=== PATIENT | female | born 1995 | race Two or more races ===

== ENCOUNTER 2016-11-26 09:08 | Observation (INO) | payer MEDICARE, MEDICAID ==
[~2016-11-26] VITALS: Ht 162.6 cm; Wt 99.8 kg
[2016-11-26] MEDS ORDERED: LORazepam 2MG/ML-1ML VIAL ONE (10:26)
[2016-11-26] MEDS ORDERED: LORazepam 2MG/ML-1ML VIAL IV ONE (10:30)
[2016-11-26] MEDS ORDERED: SODIUM CHLORIDE 0.9% 1,000 ML IVB ONE (10:40)
[2016-11-26 12:11] LABS: Basophils # (auto) 0 uL; Basophils % (auto) 0.1 % (0.0-2.0); Eosinophils # (auto) 0 uL; Hematocrit 36.9 % (36.0-46.0); Hemoglobin 12.3 g/dL (12.2-16.2); Lymphocytes % (auto) 7.9 % (10.0-50.0); Mean Corpuscular Hemoglobin 31.4 pg (28.0-32.0); Mean Corpuscular Hgb Conc. 33.3 g/dL (32.0-36.0); Mean Corpuscular Volume 94.2 fL (80.0-100.0); Mean Platelet Volume 8.3 fL (7.4-10.4); Monocytes # (auto) 0.4 uL; Monocytes % (auto) 2.8 % (0.0-12.0); Neutrophils # (auto) 11.8 uL; Neutrophils % (auto) 89.2 % (37.0-80.0); Platelet Count (auto) 217 10^3/uL (140-450); Red Cell Distribution Width 12.8 % (11.6-16.0); White Blood Cell 13.2 10^3/uL (4.4-10.8)
[2016-11-26 12:40] LABS: Urine Bilirubin Negative (Negative); Urine Blood Negative /uL (Negative); Urine Color Yellow (Yellow); Urine Glucose Normal (Normal); Urine Ketone Negative (Negative); Urine Mucus FEW (None Seen); Urine Nitrite Negative (Negative); Urine RBC <1 /hpf (0 - 4); Urine Urobilinogen Normal (Negative)
[2016-11-26 12:43] LABS: Albumin 3.2 g/dL (3.4-5.0); BUN/Creatinine Ratio 9.6; Bilirubin, Total 0.2 mg/dL (0.2-1.0); Calcium 7.8 mg/dL (8.5-10.1); Potassium 3.4 mmol/L (3.5-5.1); Total Protein 7.3 g/dL (6.4-8.2)
[2016-11-26 13:40] VITALS: BP 110/52
== END 2016-11-26 16:25 | disposition home or self-care (01) | DRG 101 ==
LOC: ER 09:08 → EDBD 09:08 → OVERFLOW 10:42
PROVIDERS: ADMIT Emergency Medicine; ATTEND Emergency Medicine
DX: G40.909 Epilepsy, unspecified, not intractable, without status epilepticus (principal); F79 Unspecified intellectual disabilities; Z87.891 Personal history of nicotine dependence
CPT/HCPCS: 36415; 70450; 71010; 80053; 81001; 81025; 82962; 83735; 84443; 85025; 93005; 96361; 96374; 99285; G0378; G0434; J2060; J7030

== ENCOUNTER 2018-11-16 10:23 | Inpatient (IN) | payer MEDICARE, MEDICAID | END 2018-11-19 11:05 | disposition home or self-care (01) | LOC: ER 10:23 → OVERFLOW 14:07 → CENTRAL 17:24 | DX: A41.9 Sepsis, unspecified organism (principal); J18.9 Pneumonia, unspecified organism; G93.41 Metabolic encephalopathy; E87.2 Acidosis; G40.89 Other seizures; E66.9 Obesity, unspecified; F79 Unspecified intellectual disabilities; G40.401 Other generalized epilepsy and epileptic syndromes, not intractable, with status epilepticus ==

== ENCOUNTER 2019-07-22 17:05 | Emergency (ER) | payer MEDICARE, MEDICAID ==
[~2019-07-22] VITALS: Ht 177.8 cm; Wt 90.7 kg
[~2019-07-22 17:05] MED LIST: AZIT250T8 PO; FOLI1TAB6 PO; OXCA600T3 PO; PHEN32.44 PO; TOPI100T29 PO
[2019-07-22] MEDS ORDERED: LORazepam 2MG/ML-1ML VIAL ONE (18:01)
[2019-07-22] MEDS ORDERED: LORazepam 2MG/ML-1ML VIAL IV ONE (18:15)
[2019-07-22 21:55] LABS: Urine WBC None Seen /hpf (0 - 5)
[2019-07-22] MEDS ORDERED: PHENobarbital 32.4 MG TAB PO ONE (22:00)
[2019-07-22] MEDS ORDERED: OXcarbazepine 300 MG TAB PO ONE (22:00)
[2019-07-22] MEDS ORDERED: TOPIRAMATE 100 MG TAB PO ONE (22:00)
[2019-07-22 22:22] LABS: Urine Bacteria FEW /hpf (None Seen); Urine Blood 1+ /uL (Negative); Urine Specific Gravity 1.008 (1.001-1.035)
[2019-07-22 22:30] VITALS: BP 126/61
[2019-07-22 23:21] LABS: Basophils # (auto) 0 uL; Basophils % (auto) 0.6 % (0.0-2.0); Eosinophils # (auto) 0 uL; Eosinophils % (auto) 0.1 % (0.0-7.0); Hematocrit 43.1 % (36.0-46.0); Hemoglobin 14.4 g/dL (12.2-16.2); Lymphocytes # (auto) 1.1 uL; Lymphocytes % (auto) 16.9 % (10.0-50.0); Mean Corpuscular Hemoglobin 31.8 pg (28.0-32.0); Mean Corpuscular Hgb Conc. 33.4 g/dL (32.0-36.0); Mean Corpuscular Volume 95.3 fL (80.0-100.0); Monocytes # (auto) 0.8 uL; Monocytes % (auto) 12.6 % (0.0-12.0); Neutrophils # (auto) 4.4 uL; Neutrophils % (auto) 69.8 % (37.0-80.0); Nucleated Red Blood Cells % 0.1 %; Platelet Count (auto) 179 10^3/uL (140-450); Red Blood Cells 4.52 10^6/uL (4.0-5.20); Red Cell Distribution Width 12.5 % (11.8-14.3); White Blood Cell 6.4 10^3/uL (4.4-10.8)
[2019-07-22 23:37] LABS: Alanine Aminotransferase 20 U/L (13-56); Albumin 3.6 g/dL (3.4-5.0); Anion Gap 9 (5-15); Aspartate Aminotransferase 14 U/L (15-37); BUN/Creatinine Ratio 8.8; Blood Urea Nitrogen 6 mg/dL (7-18); Calcium 8.4 mg/dL (8.5-10.1); Carbon Dioxide 23 mmol/L (21-32); Chloride 109 mmol/L (98-107); GFR African American 135 mL/min; GFR Non-African American 111 mL/min; Glucose 92 mg/dL (74-106); Potassium 3.6 mmol/L (3.5-5.1); Sodium 141 mmol/L (136-145)
[2019-07-22 23:39] LABS: Alkaline Phosphatase 129 U/L (45-117); Bilirubin, Total 0.2 mg/dL (0.2-1.0); Creatine Kinase IFCC 46 U/L (26-192); Total Protein 8.4 g/dL (6.4-8.2)
== END 2019-07-22 23:55 | disposition home or self-care (01) ==
LOC: EDBD 17:05 → EDUNIT# 17:05 → ER 17:10
DX: G40.909 Epilepsy, unspecified, not intractable, without status epilepticus (principal); F79 Unspecified intellectual disabilities; Z79.899 Other long term (current) drug therapy
CPT/HCPCS: 36415; 80053; 81001; 82550; 85025; 96374; 99284; J2060

== ENCOUNTER → 2019-11-09 | Emergency (ER) | payer MEDICARE, MEDICAID ==
[~2019-11-09] VITALS: Ht 167.6 cm; Wt 74.8 kg
[~2019-11-09] MED LIST changes: +LORazepam 2MG/ML-1ML VIAL IV ONE; +LORazepam 2MG/ML-1ML VIAL ONE; +SODIUM CHLORIDE 0.9% 1,000 ML IV ONE; +TOPI100T68 PO
[2019-11-09 13:57] LABS: Albumin 3.6 g/dL (3.4-5.0); Anion Gap 9 (5-15); Blood Urea Nitrogen 8 mg/dL (7-18); Calcium 8.7 mg/dL (8.5-10.1); Carbon Dioxide 21 mmol/L (21-32); Chloride 110 mmol/L (98-107); GFR African American 112 mL/min; GFR Non-African American 92 mL/min; Glucose 101 mg/dL (74-106); Magnesium 2.5 mg/dL (1.6-2.6); Potassium 3.6 mmol/L (3.5-5.1); Sodium 140 mmol/L (136-145)
[2019-11-09 14:02] LABS: Alanine Aminotransferase 30 U/L (13-56); Alkaline Phosphatase 139 U/L (45-117); Aspartate Aminotransferase 20 U/L (15-37); Bilirubin, Total 0.2 mg/dL (0.2-1.0); Total Protein 8.5 g/dL (6.4-8.2)
[2019-11-09 14:14] LABS: Beta HCG, Quantitative < 1 mlU/mL (1-3)
[2019-11-09 14:20] LABS: Basophils # (auto) 0 10 ^3/uL (0-0.2); Basophils % (auto) 0.3 % (0.0-2.0); Eosinophils # (auto) 0 10 ^3/uL (0-0.8); Eosinophils % (auto) 0.1 % (0.0-7.0); Hematocrit 42.8 % (36.0-46.0); Hemoglobin 14.2 g/dL (12.2-16.2); Lymphocytes # (auto) 0.7 10 ^3/uL (0.4-5.4); Lymphocytes % (auto) 4.4 % (10.0-50.0); Mean Corpuscular Hgb Conc. 33.2 g/dL (32.0-36.0); Mean Corpuscular Volume 96.3 fL (80.0-100.0); Monocytes # (auto) 0.6 10 ^3/uL (0-1.3); Monocytes % (auto) 3.7 % (0.0-12.0); Neutrophils # (auto) 14.2 10 ^3/uL (1.6-8.6); Neutrophils % (auto) 91.5 % (37.0-80.0); Platelet Count (auto) 194 10^3/uL (140-450); Red Blood Cells 4.44 10^6/uL (4.0-5.20); Red Cell Distribution Width 12.6 % (11.8-14.3); White Blood Cell 15.5 10^3/uL (4.4-10.8)
[2019-11-09 16:00] VITALS: BP 108/53
[2019-11-09 16:28] LABS: Urine Bacteria MANY /hpf (None Seen); Urine Blood 2+ /uL (Negative); Urine Mucus FEW (None Seen); Urine Specific Gravity 1.015 (1.001-1.035); Urine WBC 11 /hpf (0 - 5); Urine WBC Clumps PRESENT /hpf (None Seen)
[2019-11-09 16:42] LABS: Amphetamine Screen, Urine NEGATIVE (NEGATIVE); Barbiturate Scree,Urine POSITIVE (NEGATIVE); Benzodiazephine Screen, Urine POSITIVE (NEGATIVE); Cannabinoid Screen, Urine NEGATIVE (NEGATIVE); Cocaine Screen, Urine NEGATIVE (NEGATIVE); Opiate Scree,Urine NEGATIVE (NEGATIVE); Phencyclidine Screen, Urine NEGATIVE (NEGATIVE)
== END | disposition home or self-care (01) ==
LOC: EDUNIT# 10:42 → EDBD 10:56 → ER 10:56
DX: G40.909 Epilepsy, unspecified, not intractable, without status epilepticus (principal); N39.0 Urinary tract infection, site not specified; F79 Unspecified intellectual disabilities; R78.0 Finding of alcohol in blood; Y90.9 Presence of alcohol in blood, level not specified
CPT/HCPCS: 36415; 70450; 71045; 80053; 80184; 80307; 81001; 83735; 84443; 84484; 84702; 85025; 96374; 99285; J2060; J7030

== ENCOUNTER 2019-11-13 00:44 | Inpatient (IN) | payer MEDICARE, MEDICAID ==
[~2019-11-13] VITALS: Ht 160 cm; Wt 85.4 kg
[~2019-11-13 00:44] MED LIST changes: -LORazepam 2MG/ML-1ML VIAL IV ONE; -LORazepam 2MG/ML-1ML VIAL ONE; -SODIUM CHLORIDE 0.9% 1,000 ML IV ONE; -TOPI100T68 PO
[2019-11-13] MEDS ORDERED: ACCU-CHEK COMFORT CURVE STRIP VI ONE (01:00)
[2019-11-13] MEDS ORDERED: LORazepam 2MG/ML-1ML VIAL IV ONE (01:45)
[2019-11-13 01:58] LABS: Basophils # (auto) 0 10 ^3/uL (0-0.2); Basophils % (auto) 0.4 % (0.0-2.0); Eosinophils # (auto) 0.1 10 ^3/uL (0-0.8); Eosinophils % (auto) 1.2 % (0.0-7.0); Hematocrit 42.3 % (36.0-46.0); Hemoglobin 13.9 g/dL (12.2-16.2); Lymphocytes % (auto) 18.6 % (10.0-50.0); Mean Corpuscular Hemoglobin 32.3 pg (28.0-32.0); Mean Corpuscular Hgb Conc. 32.9 g/dL (32.0-36.0); Mean Corpuscular Volume 98.2 fL (80.0-100.0); Monocytes # (auto) 0.7 10 ^3/uL (0-1.3); Monocytes % (auto) 6.7 % (0.0-12.0); Neutrophils # (auto) 7.8 10 ^3/uL (1.6-8.6); Neutrophils % (auto) 73.1 % (37.0-80.0); Platelet Count (auto) 272 10^3/uL (140-450); Red Blood Cells 4.31 10^6/uL (4.0-5.20); White Blood Cell 10.6 10^3/uL (4.4-10.8)
[2019-11-13 02:22] LABS: Alanine Aminotransferase 49 U/L (13-56); Albumin 3.3 g/dL (3.4-5.0); Anion Gap 8 (5-15); Aspartate Aminotransferase 43 U/L (15-37); BUN/Creatinine Ratio 7.4; Blood Urea Nitrogen 5 mg/dL (7-18); Calcium 8.9 mg/dL (8.5-10.1); Carbon Dioxide 21 mmol/L (21-32); Chloride 109 mmol/L (98-107); GFR African American 135 mL/min; GFR Non-African American 111 mL/min; Glucose 119 mg/dL (74-106); Potassium 3.6 mmol/L (3.5-5.1); Sodium 138 mmol/L (136-145)
[2019-11-13 02:25] LABS: Alkaline Phosphatase 108 U/L (45-117); Bilirubin, Total 0.4 mg/dL (0.2-1.0); Total Protein 8.1 g/dL (6.4-8.2)
[2019-11-13 04:21] LABS: INR 1.07 (0.9-1.15); Partial Thromboplastin Time 28.4 sec (23.64-32.05)
[2019-11-13 04:24] LABS: Salicylate < 1.7 mg/dL (2.8-20.0)
[2019-11-13 04:28] LABS: Acetaminophen < 2.0 ug/mL (10-30)
[2019-11-13 04:34] LABS: Blood Alcohol < 3.0 mg/dL (0-5); Magnesium 1.9 mg/dL (1.6-2.6)
[2019-11-13 04:43] LABS: Beta HCG, Quantitative < 1 mlU/mL (1-3)
[2019-11-13 05:58] LABS: Urine Bacteria FEW /hpf (None Seen); Urine Blood 2+ /uL (Negative); Urine Mucus FEW (None Seen); Urine Specific Gravity 1.015 (1.001-1.035); Urine WBC 2 /hpf (0 - 5)
[2019-11-13 06:07] LABS: Amphetamine Screen, Urine NEGATIVE (NEGATIVE); Barbiturate Scree,Urine POSITIVE (NEGATIVE); Benzodiazephine Screen, Urine NEGATIVE (NEGATIVE); Cannabinoid Screen, Urine NEGATIVE (NEGATIVE); Cocaine Screen, Urine NEGATIVE (NEGATIVE); Opiate Scree,Urine NEGATIVE (NEGATIVE); Phencyclidine Screen, Urine NEGATIVE (NEGATIVE)
[2019-11-13] MEDS ORDERED: HYDROcodone-ACET 5/325MG TAB PO PRN (07:00)
[2019-11-13] MEDS ORDERED: DOCUSATE SOD 100 MG CAP PO PRN (07:00)
[2019-11-13] MEDS ORDERED: ACETAMINOPHEN 325 MG TAB PO PRN (07:00)
[2019-11-13] MEDS ORDERED: SODIUM CHLORIDE 0.9% 1,000 ML IV ONE (07:00)
[2019-11-13] MEDS ORDERED: DEXTROSE (50%) 50ML SYRG IV PRN (07:00)
[2019-11-13] MEDS ORDERED: ONDANSETRON HCL 4 MG/2 ML VIAL IV PRN (07:00)
[2019-11-13] MEDS: InsuLIN REG 1unit/0.01ml Soln (100units/ml) SC SCH ×5 (08:00→23:28)
[2019-11-13] MEDS: ACCU-CHEK COMFORT CURVE STRIP VI SCH ×5 (08:07→23:29)
[2019-11-13] MEDS: cefTRIAXone 1GM/50ML D5W 50 ML IV SCH (09:41)
[2019-11-13] MEDS: PHENobarbital 32.4 MG TAB PO SCH ×2 (09:49→19:45)
[2019-11-13] MEDS: OXcarbazepine 300 MG TAB PO SCH ×2 (09:50→19:47)
[2019-11-13] MEDS: FOLIC ACID 1 MG TAB PO SCH (09:53)
[2019-11-13] MEDS ORDERED: TOPIRAMATE 100 MG TAB PO SCH (10:00)
--- NOTE | 2019-11-13 10:20 | NUR ---
PATIENT ADMITTED TO FLOOR NO DISTRESS NOTED. Tiburcio NURSE REPORTS PT IS HAVING SMALL SEIZURES LASTING 30 SECONDS, SHE REPORTS PT LAST SEIZURE WAS LAST NIGHT. BED RAILS PADDED, NASAL CANULA HOOKED UP TO 02 AND READY IF NEEDED. SEIZURE PRECAUTIONS IN PLACE, BED ALARM ON. PT WAS ABLE TO GET UP FROM E.[facility]. [facility] AND WALK A COUPLE STEPS TO SIT IN BED WITH MINIMUM ASSIST. ASKED PT QUESTIONS, PT DOESN'T SPEAK TO RESPOND BUT WILL NOD HEAD YES OR NO IN RESPONSE. PT IS ABLE TO FOLLOW COMMANDS. PT REPORTS SHE HAS NO PAIN AT THIS TIME. VITALS:BP 122/68, HR 109, 02 94 ON RA, T 98.4, RR 17. PT ORIENTED TO CALL LIGHT, SIDE RAILS UP X2, BED IN LOWEST LOCKED POSITION, WILL CONTINUE TO MONITOR.
[2019-11-13] MEDS ORDERED: TOPI100T68 PO (10:54)
[2019-11-13 13:00] VITALS: BP 122/68
--- NOTE | 2019-11-13 14:16 | NUR ---
DREAD REPORTS SHE ATTEMPTED TO FEED PATIENT. SHE REPORTS PT WILL PUT FOOD IN HER MOUTH BUT IS NOT CHEWING OR SWALLOWING. [facility]AR HOSPITALIST, WILL REQUEST DIFFERENT DIET AND SWALLOW EVALUATION. Addendum: 11/13/19 at 1608 by ARIAS WRIGHT RN SPONGE BUFFER REPORTS PT ONLY HAD A COUPLE BITS OF LUNCH.
--- NOTE | 2019-11-13 15:17 | NUR ---
PAGED HOSPITALIST AGAIN TO REPORTS PT NOT CHEWING OR SWALLOWING AND TO REQUEST DIFFERENT DIET, AWAITING CALL BACK. Addendum: 11/13/19 at 1519 by ARIAS WRIGHT RN WILL REQUEST DIET CHANGE TO NPO
--- NOTE | 2019-11-13 15:32 | NUR ---
SPOKE WITH PT SISTER PREMA. PREMA REPORTS PT LAST BM IS 11/09. PREMA REPORTS PT DOESN'T SPEAK MUCH AT HOME, SHE ALSO REPORTS PT NORMALLY HAS NO TROUBLE VOIDING AND HAS NOT HAD A BM BECAUSE PT HASN'T BEEN EATING WELL THE LAST FEW DAYS. PREMA REPORTS PT DID EAT BREAKFAST THIS MORNING AND VOIDED 3 TIME THIS MORNING, ONCE IN E.R. BEFORE PT WAS ADMITTED TO FLOOR.
--- NOTE | 2019-11-13 15:58 | NUR ---
PT VOIDED LARGE AMOUNT OF YELLOW URINE ON CHUCKS, PT CLEANED, CHUCKS CHANGED, WILL CONTINUE TO MONITOR.
[2019-11-13 17:00] VITALS: BP 117/66
--- NOTE | 2019-11-13 17:11 | NUR ---
SEMICONDUCTOR LAB TECHNICIAN REPORTS PT O2 ON RA IS 88%. REASSESSED 02 ON RA, O2 FLUCTUATING BETWEEN 89% AND 92 %. PT PLACED ON 2L NC. WILL CONTINUE TO MONITOR.
--- NOTE | 2019-11-13 19:30 | NUR ---
Opening Shift Note Assumed care of patient, awake and alert. No S/S of distress/SOB or pain. Insructed on POC and to callfor assist PRN, will continue to monitor for changes Q1hr and PRN. Fall and safety and seizure precautions in place. Call light within reach.
[2019-11-13] MEDS: TOPIRAMATE 100 MG TAB PO SCH (19:46)
--- NOTE | 2019-11-13 20:50 | NUR ---
IV insertion IV access obtained, via clean sterile technique by inserting 22 gauge catheter at RFA after 2 attempts. IV secured properly. No trauma to site. Patient tolerated well. IV removal IV DC'd with clean sterile technique, catheter fully intact. Pressure dressing applied to site. Patient tolerated well. NOTE: LFA 22g removed due to infiltration
[2019-11-13 21:37] VITALS: BP 120/59
--- NOTE | 2019-11-13 22:00 | NUR ---
HOSPITALIST Paged on-call hospitalist regarding PRN seizure medication for break-through seizures. Awaiting call back.
[2019-11-13] MEDS ORDERED: LORazepam 2MG/ML-1ML VIAL IV PRN (22:30)
--- NOTE | 2019-11-13 22:30 | NUR ---
CHASITY Craft at nurse's station, informed him no PRN Ativan for seizures on board. New orders received, read back and verified. Will input
[2019-11-14] MEDS: InsuLIN REG 1unit/0.01ml Soln (100units/ml) SC SCH ×5 (04:00→19:56)
[2019-11-14] MEDS: ACCU-CHEK COMFORT CURVE STRIP VI SCH ×5 (04:01→19:56)
[2019-11-14 04:42] VITALS: BP 116/81
--- NOTE | 2019-11-14 07:20 | NUR ---
Opening shift note Assumed care of patient. Patient A&Ox3. Does not verbalize but nods for yes/no. Respirations even and non-labored with no s/s of distress. Patient denies any pain and no facial grimacing is noted. IV flushed, patent and intact. POC written on whiteboard. Patient requested to use the restroom, assisted to bedside commode. Patient urinated 150 mL of clear, dark yellow urine, denied any pain upon urination. Bed lowered/locked with 2 side rails up, seizure precautions in place, bed alarm on, call light within reach, will continue to monitor.
[2019-11-14 08:00] VITALS: BP 129/74
[2019-11-14 09:03] VITALS: BP 115/70
[2019-11-14] MEDS: PHENobarbital 32.4 MG TAB PO SCH ×2 (09:56→22:16)
[2019-11-14] MEDS: FOLIC ACID 1 MG TAB PO SCH (09:56)
[2019-11-14] MEDS: OXcarbazepine 300 MG TAB PO SCH ×2 (09:56→22:16)
[2019-11-14] MEDS: TOPIRAMATE 100 MG TAB PO SCH ×2 (09:56→22:16)
[2019-11-14] MEDS: cefTRIAXone 1GM/50ML D5W 50 ML IV SCH (09:57)
[2019-11-14 12:20] VITALS: BP 123/73
--- NOTE | 2019-11-14 13:30 | NUR ---
Patient ambulating to bedside commode. Returned to bed, bed alarm activated.
--- NOTE | 2019-11-14 14:04 | NUR ---
EEG procedure bedside.
--- NOTE | 2019-11-14 14:34 | NUR ---
SWALLOW EVALUATED. PATIENT HAS NATURAL TEETH, UPPER AND LOWER. PATIENT IS INTELLECTUALLY DISABLED AND NONVERBAL. PATIENT ABLE TO TOLERATE MECHANICAL SOFT DIET TEXTURE WITH THIN LIQUIDS WITH NO OVERT SIGNS OR SYMPTOMS OF ASPIRATION. PATIENT WILL REQUIRE MAX CUEING TO EAT. NURSING NOTIFIED.
[2019-11-14 16:45] VITALS: BP 121/79
--- NOTE | 2019-11-14 17:20 | NUR ---
SITTER PATIENT TRANSFERRED TO [facility] WITH A SITTER BEDSIDE. PATIENT REQUIRES REGULAR REORIENTATION FOR SAFETY.
--- NOTE | 2019-11-14 18:59 | NUR ---
ENDORSED CARE TO NIGHT RN.
--- NOTE | 2019-11-14 19:30 | NUR ---
Opening Shift Note Assumed care of patient, awake and alert. No S/S of distress/SOB or pain. Patient is aphasic and mentally delayed, but answers appropriately with a nod of the head for yes and no. Sitter at bedside. Will continue to monitor for changes Q1hr and PRN.
[2019-11-14 22:00] VITALS: BP 136/78
[2019-11-15] MEDS: InsuLIN REG 1unit/0.01ml Soln (100units/ml) SC SCH ×5 (00:10→16:00)
[2019-11-15] MEDS: ACCU-CHEK COMFORT CURVE STRIP VI SCH ×5 (00:10→16:00)
[2019-11-15 02:00] VITALS: BP 130/70
[2019-11-15 05:00] VITALS: BP 118/82
--- NOTE | 2019-11-15 07:30 | NUR ---
Opening Shift Note Assumed care of patient from noc shift rn, awake and alert. No S/S of distress/SOB, denies pain at this time. Instructed on POC and to call for assist PRN, will continue to monitor for changes Q1hr and PRN. Sitter at bedside. No signs of seizures noted at this time.
[2019-11-15 08:00] VITALS: BP 124/68
[2019-11-15 09:00] VITALS: BP 124/68
[2019-11-15] MEDS: cefTRIAXone 1GM/50ML D5W 50 ML IV SCH (10:40)
[2019-11-15] MEDS: PHENobarbital 32.4 MG TAB PO SCH (10:43)
[2019-11-15] MEDS: FOLIC ACID 1 MG TAB PO SCH (10:43)
[2019-11-15] MEDS: OXcarbazepine 300 MG TAB PO SCH (10:43)
[2019-11-15] MEDS: TOPIRAMATE 100 MG TAB PO SCH (10:43)
[2019-11-15 13:00] VITALS: BP 143/74
--- NOTE | 2019-11-15 13:20 | NUR ---
ELECTROENCEPHALOGRAM COMPLETED AT BEDSIDE. JOANNE CATALAN.
[2019-11-15 17:00] VITALS: BP 130/74
--- NOTE | 2019-11-15 18:20 | NUR ---
patient discharged, discharge instruction and copies given to sister (Jeannie) over the phone and in person. Patient does not speak but able to respond to "yes or no" questions. IV discontinued. no s/s distress noted at this time. Picked up by sister.
== END 2019-11-15 18:00 | disposition home or self-care (01) | DRG 101 ==
LOC: ER 00:46 → EAST 04:47 → CENTRAL 10:10
PROVIDERS: ADMIT Hospitalist; ATTEND Internal Medicine Nephrology
DX: G40.401 Other generalized epilepsy and epileptic syndromes, not intractable, with status epilepticus (principal); N39.0 Urinary tract infection, site not specified; R73.9 Hyperglycemia, unspecified; F79 Unspecified intellectual disabilities; Z79.899 Other long term (current) drug therapy
CPT/HCPCS: 36415; 70450; 71045; 80053; 80307; 80320; 80329; 81001; 82962; 83036; 83735; 84443; 84484; 84702; 85025; 85610; 85730; 87086; 92610; 95819; 96361; 96365; 96375; G0378; J0696

== ENCOUNTER → 2020-03-03 | Emergency (ER) | payer MEDICARE, MEDICAID ==
[~2020-03-03] VITALS: Ht 162.6 cm; Wt 124.7 kg
[~2020-03-03] MED LIST changes: +HALOPERIDOL LACTATE 5 MG/ML INJ VIAL IM ONE; +HALOPERIDOL LACTATE 5 MG/ML INJ VIAL ONE; +LORazepam 2MG/ML-1ML VIAL IM ONE; +LORazepam 2MG/ML-1ML VIAL ONE; -TOPI100T29 PO; +TOPI100T68 PO; +diphenhdrAMINE HCL 50 MG/1 ML VL IM ONE; +diphenhdrAMINE HCL 50 MG/1 ML VL ONE
[2020-03-04 03:01] LABS: Basophils # (auto) 0.1 10 ^3/uL (0-0.2); Basophils % (auto) 0.5 % (0.0-2.0); Eosinophils # (auto) 0.1 10 ^3/uL (0-0.8); Eosinophils % (auto) 0.9 % (0.0-7.0); Hemoglobin 13.8 g/dL (12.2-16.2); Lymphocytes # (auto) 2.8 10 ^3/uL (0.4-5.4); Lymphocytes % (auto) 24.2 % (10.0-50.0); Mean Corpuscular Hemoglobin 31.7 pg (28.0-32.0); Mean Corpuscular Hgb Conc. 32.8 g/dL (32.0-36.0); Mean Corpuscular Volume 96.8 fL (80.0-100.0); Monocytes # (auto) 0.8 10 ^3/uL (0-1.3); Monocytes % (auto) 7.3 % (0.0-12.0); Neutrophils # (auto) 7.7 10 ^3/uL (1.6-8.6); Neutrophils % (auto) 67.1 % (37.0-80.0); Platelet Count (auto) 238 10^3/uL (140-450); Red Blood Cells 4.34 10^6/uL (4.0-5.20); White Blood Cell 11.4 10^3/uL (4.4-10.8)
[2020-03-04 03:08] LABS: Urine Bacteria MANY /hpf (None Seen); Urine Blood Negative /uL (Negative); Urine Mucus FEW (None Seen); Urine Specific Gravity 1.011 (1.001-1.035); Urine WBC 2 /hpf (0 - 5)
[2020-03-04 03:09] LABS: Alcohol, Urine < 3.0 mg/dL (0-10); Amphetamine Screen, Urine NEGATIVE (NEGATIVE); Barbiturate Scree,Urine POSITIVE (NEGATIVE); Benzodiazephine Screen, Urine NEGATIVE (NEGATIVE); Cannabinoid Screen, Urine NEGATIVE (NEGATIVE); Cocaine Screen, Urine NEGATIVE (NEGATIVE); Opiate Scree,Urine NEGATIVE (NEGATIVE); Phencyclidine Screen, Urine NEGATIVE (NEGATIVE)
[2020-03-04 03:16] LABS: Albumin 3.4 g/dL (3.4-5.0); Anion Gap 4 (5-15); Blood Alcohol < 3.0 mg/dL (0-5); Blood Urea Nitrogen 7 mg/dL (7-18); Calcium 8.5 mg/dL (8.5-10.1); Carbon Dioxide 24 mmol/L (21-32); Chloride 112 mmol/L (98-107); Glucose 96 mg/dL (74-106); Potassium 3.6 mmol/L (3.5-5.1); Sodium 140 mmol/L (136-145)
[2020-03-04 03:19] LABS: Alanine Aminotransferase 22 U/L (13-56); Alkaline Phosphatase 128 U/L (45-117); Aspartate Aminotransferase 25 U/L (15-37); BUN/Creatinine Ratio 9.6; Bilirubin, Total 0.3 mg/dL (0.2-1.0); GFR African American 124 mL/min; GFR Non-African American 102 mL/min; Total Protein 7.9 g/dL (6.4-8.2)
[2020-03-04 04:56] VITALS: BP 107/39
== END | disposition home or self-care (01) ==
LOC: EDUNIT# 20:35 → EDBD 20:49 → ER 20:50
DX: G40.909 Epilepsy, unspecified, not intractable, without status epilepticus (principal); H61.23 Impacted cerumen, bilateral; R41.82 Altered mental status, unspecified
CPT/HCPCS: 36415; 80053; 80307; 80320; 81001; 85025; 96372; 99285; J1200; J1630; J2060; 70450

== ENCOUNTER 2021-01-07 16:28 | Inpatient (IN) | payer MEDICARE, MEDICAID ==
[~2021-01-07] VITALS: Ht 162.6 cm; Wt 98.8 kg
[~2021-01-07 16:28] MED LIST changes: -HALOPERIDOL LACTATE 5 MG/ML INJ VIAL IM ONE; -HALOPERIDOL LACTATE 5 MG/ML INJ VIAL ONE; -LORazepam 2MG/ML-1ML VIAL IM ONE; -LORazepam 2MG/ML-1ML VIAL ONE; -diphenhdrAMINE HCL 50 MG/1 ML VL IM ONE; -diphenhdrAMINE HCL 50 MG/1 ML VL ONE
[2021-01-07] MEDS ORDERED: LORazepam 2MG/ML-1ML VIAL ONE (16:41)
[2021-01-07 17:39] LABS: Basophils # (auto) 0.1 10 ^3/uL (0-0.2); Basophils % (auto) 0.4 % (0.0-2.0); Eosinophils # (auto) 0.1 10 ^3/uL (0-0.8); Eosinophils % (auto) 0.9 % (0.0-7.0); Hematocrit 42.2 % (36.0-46.0); Hemoglobin 13.9 g/dL (12.2-16.2); Lymphocytes # (auto) 1.8 10 ^3/uL (0.4-5.4); Lymphocytes % (auto) 13.9 % (10.0-50.0); Mean Corpuscular Volume 96.8 fL (80.0-100.0); Monocytes # (auto) 0.7 10 ^3/uL (0-1.3); Monocytes % (auto) 5.9 % (0.0-12.0); Neutrophils # (auto) 9.9 10 ^3/uL (1.6-8.6); Neutrophils % (auto) 78.9 % (37.0-80.0); Platelet Count (auto) 255 10^3/uL (140-450); Red Blood Cells 4.36 10^6/uL (4.0-5.20); White Blood Cell 12.6 10^3/uL (4.4-10.8)
[2021-01-07] MEDS ORDERED: LORazepam 2MG/ML-1ML VIAL IV ONE ×2 (17:45→18:45)
[2021-01-07 18:07] LABS: Potassium 3.7 mmol/L (3.5-5.1)
[2021-01-07 18:15] LABS: Albumin 3.7 g/dL (3.4-5.0); BUN/Creatinine Ratio 8.2; Calcium 8.5 mg/dL (8.5-10.1)
[2021-01-07 18:16] LABS: Bilirubin, Total 0.3 mg/dL (0.2-1.0); Total Protein 8.2 g/dL (6.4-8.2)
[2021-01-07 18:41] LABS: Urine Bacteria MANY /hpf (None Seen); Urine Blood Negative /uL (Negative); Urine Mucus FEW (None Seen); Urine Specific Gravity 1.019 (1.001-1.035); Urine WBC 11 /hpf (0 - 5)
[2021-01-07] MEDS ORDERED: ALBUTEROL SULF 2.5 MG/0.5ML(0.5%) NEB SOLN NEB PRN (18:45)
[2021-01-07] MEDS ORDERED: ACETAMINOPHEN 500 MG TAB PO PRN (18:45)
[2021-01-07] MEDS ORDERED: ONDANSETRON HCL 4 MG/2 ML VIAL IV ONE (18:45)
[2021-01-07] MEDS ORDERED: IPRATROPIUM BROM 0.5 MG/2.5ML INH SOL NEB PRN (18:45)
[2021-01-07] MEDS ORDERED: ONDANSETRON HCL 4 MG/2 ML VIAL IV PRN (18:45)
[2021-01-07] MEDS ORDERED: LORazepam 2MG/ML-1ML VIAL IV PRN (18:50)
[2021-01-07 19:53] VITALS: BP 117/70
[2021-01-07] MEDS: TOPIRAMATE 100 MG TAB PO SCH (22:54)
[2021-01-07] MEDS: PHENobarbital 32.4 MG TAB PO SCH (22:54)
[2021-01-07] MEDS: OXcarbazepine 300 MG TAB PO SCH (22:55)
[2021-01-08 08:30] VITALS: BP 106/64
[2021-01-08] MEDS: FAMOTIDINE 20 MG TAB PO SCH (10:06)
[2021-01-08] MEDS: TOPIRAMATE 100 MG TAB PO SCH ×2 (10:06→21:47)
[2021-01-08] MEDS: PHENobarbital 32.4 MG TAB PO SCH ×2 (10:06→21:47)
[2021-01-08] MEDS: FOLIC ACID 1 MG TAB PO SCH (10:06)
[2021-01-08] MEDS: OXcarbazepine 300 MG TAB PO SCH ×2 (10:07→21:47)
[2021-01-08 20:00] VITALS: BP 126/60
[2021-01-08 21:20] VITALS: BP 126/60
[2021-01-09 05:00] VITALS: BP 99/55
[2021-01-09 08:51] LABS: Basophils # (auto) 0 10 ^3/uL (0-0.2); Basophils % (auto) 0.4 % (0.0-2.0); Eosinophils # (auto) 0.1 10 ^3/uL (0-0.8); Eosinophils % (auto) 1.7 % (0.0-7.0); Hematocrit 41.6 % (36.0-46.0); Hemoglobin 14.1 g/dL (12.2-16.2); Lymphocytes # (auto) 1.7 10 ^3/uL (0.4-5.4); Lymphocytes % (auto) 19.9 % (10.0-50.0); Mean Corpuscular Hemoglobin 32.9 pg (28.0-32.0); Mean Corpuscular Hgb Conc. 33.9 g/dL (32.0-36.0); Mean Corpuscular Volume 96.9 fL (80.0-100.0); Monocytes # (auto) 0.6 10 ^3/uL (0-1.3); Monocytes % (auto) 6.7 % (0.0-12.0); Neutrophils # (auto) 6.2 10 ^3/uL (1.6-8.6); Neutrophils % (auto) 71.3 % (37.0-80.0); Nucleated Red Blood Cells % 0.1 %; Platelet Count (auto) 251 10^3/uL (140-450); Red Blood Cells 4.29 10^6/uL (4.0-5.20); Red Cell Distribution Width 12.7 % (11.8-14.3); White Blood Cell 8.7 10^3/uL (4.4-10.8)
[2021-01-09 09:00] VITALS: BP 118/75
[2021-01-09] MEDS: TOPIRAMATE 100 MG TAB PO SCH (09:00)
[2021-01-09] MEDS: FAMOTIDINE 20 MG TAB PO SCH (09:00)
[2021-01-09] MEDS: OXcarbazepine 300 MG TAB PO SCH (09:01)
[2021-01-09] MEDS: FOLIC ACID 1 MG TAB PO SCH (09:01)
[2021-01-09] MEDS: PHENobarbital 32.4 MG TAB PO SCH (09:01)
[2021-01-09 09:09] LABS: BUN/Creatinine Ratio 11.3; Calcium 8.8 mg/dL (8.5-10.1); Magnesium 2.2 mg/dL (1.6-2.6); Potassium 3.3 mmol/L (3.5-5.1)
[2021-01-09 13:00] VITALS: BP 121/79
[2021-01-09] MEDS ORDERED: POTASSIUM EFFERVESENT TAB 25 MEQ PO ONE (14:30)
== END 2021-01-09 16:50 | disposition home or self-care (01) | DRG 101 ==
LOC: EDBD 16:28 → ER 16:28 → CENTRAL 18:39 → OVERFLOW 23:58 → WEST WING 01-08 07:40
PROVIDERS: ADMIT Nurse Practitioner Acute Care; ATTEND Internal Medicine
DX: G40.401 Other generalized epilepsy and epileptic syndromes, not intractable, with status epilepticus (principal); R65.10 Systemic inflammatory response syndrome (SIRS) of non-infectious origin without acute organ dysfunction; E66.9 Obesity, unspecified; Z68.37 Body mass index [BMI] 37.0-37.9, adult; Z20.822 Contact with and (suspected) exposure to COVID-19; Z78.1 Physical restraint status; Z79.899 Other long term (current) drug therapy; E87.6 Hypokalemia
CPT/HCPCS: 36415; 80048; 80053; 80184; 81001; 83735; 85025; 87086; 87426; 96365; 96375; 96376; G0378; J2405; J7060

== ENCOUNTER → 2021-02-18 | Outpatient (CLI) | payer MEDICARE, MEDICAID ==
[~2021-02-18] MED LIST changes: -AZIT250T8 PO
[2021-02-18 11:44] LABS: Basophils # (auto) 0 10 ^3/uL (0-0.2); Basophils % (auto) 0.5 % (0.0-2.0); Eosinophils # (auto) 0.2 10 ^3/uL (0-0.8); Hematocrit 39.2 % (36.0-46.0); Hemoglobin 13.5 g/dL (12.2-16.2); Lymphocytes # (auto) 1.7 10 ^3/uL (0.4-5.4); Mean Corpuscular Hemoglobin 32.6 pg (28.0-32.0); Mean Corpuscular Hgb Conc. 34.3 g/dL (32.0-36.0); Mean Corpuscular Volume 95.1 fL (80.0-100.0); Monocytes # (auto) 0.5 10 ^3/uL (0-1.3); Monocytes % (auto) 7.1 % (0.0-12.0); Neutrophils % (auto) 62.4 % (37.0-80.0); Nucleated Red Blood Cells % 0.1 %; Red Blood Cells 4.13 10^6/uL (4.0-5.20); White Blood Cell 6.4 10^3/uL (4.4-10.8)
[2021-02-18 12:57] LABS: Albumin 3.6 g/dL (3.4-5.0); Calcium 8.4 mg/dL (8.5-10.1); Potassium 3.3 mmol/L (3.5-5.1)
[2021-02-18 13:04] LABS: BUN/Creatinine Ratio 13.1; Bilirubin, Total 0.3 mg/dL (0.2-1.0); Total Protein 8.2 g/dL (6.4-8.2)
== END | disposition home or self-care (01) ==
LOC: LAB 11:13
PROVIDERS: ATTEND Student in an Organized Health Care Education/Training Program
DX: G40.401 Other generalized epilepsy and epileptic syndromes, not intractable, with status epilepticus (principal); N39.0 Urinary tract infection, site not specified; R73.9 Hyperglycemia, unspecified; Z79.899 Other long term (current) drug therapy
CPT/HCPCS: 36415; 80053; 80061; 83036; 84439; 84443; 85025; 87086

== ENCOUNTER 2021-02-25 01:59 | Inpatient (IN) | payer MEDICARE, MEDICAID ==
[~2021-02-25] VITALS: Ht 177.8 cm; Wt 89.0 kg
[2021-02-25] MEDS ORDERED: LORazepam 2MG/ML-1ML VIAL ONE ×2 (03:12→06:11)
[2021-02-25] MEDS ORDERED: LORazepam 2MG/ML-1ML VIAL IV ONE ×2 (03:30→06:15)
[2021-02-25 04:03] LABS: Basophils # (auto) 0 10 ^3/uL (0-0.2); Basophils % (auto) 0.2 % (0.0-2.0); Eosinophils # (auto) 0.2 10 ^3/uL (0-0.8); Eosinophils % (auto) 2.1 % (0.0-7.0); Hematocrit 40.6 % (36.0-46.0); Hemoglobin 13.4 g/dL (12.2-16.2); Lymphocytes # (auto) 2.3 10 ^3/uL (0.4-5.4); Lymphocytes % (auto) 23.9 % (10.0-50.0); Mean Corpuscular Hemoglobin 31.7 pg (28.0-32.0); Mean Corpuscular Hgb Conc. 33.1 g/dL (32.0-36.0); Mean Corpuscular Volume 95.9 fL (80.0-100.0); Monocytes # (auto) 0.6 10 ^3/uL (0-1.3); Neutrophils # (auto) 6.4 10 ^3/uL (1.6-8.6); Neutrophils % (auto) 67.8 % (37.0-80.0); Red Blood Cells 4.23 10^6/uL (4.0-5.20); Red Cell Distribution Width 12.8 % (11.8-14.3); White Blood Cell 9.5 10^3/uL (4.4-10.8)
[2021-02-25 04:21] LABS: Albumin 3.6 g/dL (3.4-5.0); Calcium 8.5 mg/dL (8.5-10.1); Potassium 3.3 mmol/L (3.5-5.1)
[2021-02-25 04:28] LABS: Lactic Acid w/Reflex 8.1 mmol/L (0.4-2.0)
[2021-02-25 04:29] LABS: BUN/Creatinine Ratio 13.6; Bilirubin, Total 0.2 mg/dL (0.2-1.0); Total Protein 7.8 g/dL (6.4-8.2)
[2021-02-25] MEDS ORDERED: SODIUM CHLORIDE 0.9% 1,000 ML IV ONE (05:00)
[2021-02-25] MEDS ORDERED: ONDANSETRON HCL 4 MG/2 ML VIAL IV PRN (06:15)
[2021-02-25] MEDS ORDERED: ACETAMINOPHEN 325 MG TAB PO PRN (06:15)
[2021-02-25] MEDS ORDERED: LORazepam 2MG/ML-1ML VIAL IV PRN (06:15)
[2021-02-25] MEDS ORDERED: MORPHINE SULFATE INJECTION 2 MG/ML SYRG IV PRN (06:15)
[2021-02-25] MEDS ORDERED: TEMAZEPAM 15 MG CAP PO PRN (06:15)
[2021-02-25] MEDS ORDERED: NITROGLYCERIN 0.4 MG SL TAB SL PRN (06:15)
[2021-02-25] MEDS ORDERED: POTASSIUM CHL 20 Meq TABLET PO ONE (06:15)
[2021-02-25] MEDS ORDERED: cefTRIAXone 1GM/50ML D5W 50 ML IV SCH (09:00)
[2021-02-25] MEDS ORDERED: PHENobarbital 32.4 MG TAB PO SCH (10:00)
[2021-02-25] MEDS ORDERED: PHENobarbital SODIUM 65 MG/ML VL IV ONE (10:00)
[2021-02-25] MEDS: OXcarbazepine 300 MG TAB PO SCH ×2 (10:55→21:34)
[2021-02-25] MEDS: TOPIRAMATE 100 MG TAB PO SCH ×2 (10:55→21:34)
[2021-02-25] MEDS: PANTOPRAZOLE 40 MG TAB PO SCH (10:55)
[2021-02-25] MEDS: PHENobarbital 32.4 MG TAB PO SCH ×2 (11:32→21:33)
[2021-02-25 16:00] LABS: Urine Bacteria NONE SEEN /hpf (None Seen); Urine Blood Negative /uL (Negative); Urine Mucus FEW (None Seen); Urine Specific Gravity 1.022 (1.001-1.035); Urine WBC 1 /hpf (0 - 5)
[2021-02-25 17:06] VITALS: BP 125/61
[2021-02-25 22:00] VITALS: BP 134/75
[2021-02-26 05:00] VITALS: BP 90/47
[2021-02-26 06:50] LABS: Basophils # (auto) 0 10 ^3/uL (0-0.2); Basophils % (auto) 0.5 % (0.0-2.0); Eosinophils # (auto) 0.4 10 ^3/uL (0-0.8); Eosinophils % (auto) 4.7 % (0.0-7.0); Hematocrit 39.2 % (36.0-46.0); Hemoglobin 12.9 g/dL (12.2-16.2); Lymphocytes # (auto) 2.6 10 ^3/uL (0.4-5.4); Mean Corpuscular Hemoglobin 32.3 pg (28.0-32.0); Mean Corpuscular Volume 97.7 fL (80.0-100.0); Monocytes # (auto) 0.6 10 ^3/uL (0-1.3); Neutrophils % (auto) 52.8 % (37.0-80.0); Nucleated Red Blood Cells % 0.1 %; Red Blood Cells 4.01 10^6/uL (4.0-5.20); Red Cell Distribution Width 12.7 % (11.8-14.3); White Blood Cell 7.5 10^3/uL (4.4-10.8)
[2021-02-26 07:02] LABS: BUN/Creatinine Ratio 11.1; Calcium 8.6 mg/dL (8.5-10.1); Potassium 3.3 mmol/L (3.5-5.1)
[2021-02-26 09:00] VITALS: BP 113/68
[2021-02-26] MEDS: PHENobarbital 32.4 MG TAB PO SCH ×2 (09:01→21:14)
[2021-02-26] MEDS: PANTOPRAZOLE 40 MG TAB PO SCH (09:01)
[2021-02-26] MEDS: TOPIRAMATE 100 MG TAB PO SCH ×2 (09:01→21:14)
[2021-02-26] MEDS: OXcarbazepine 300 MG TAB PO SCH ×2 (09:01→21:15)
[2021-02-26 13:00] VITALS: BP 98/61
[2021-02-26] MEDS ORDERED: POTASSIUM CHL 20 Meq TABLET PO ONE (14:00)
[2021-02-26 17:00] VITALS: BP 122/77
[2021-02-26 22:00] VITALS: BP 115/75
[2021-02-27 04:57] VITALS: BP 98/65
[2021-02-27] MEDS: TOPIRAMATE 100 MG TAB PO SCH (11:22)
[2021-02-27] MEDS: PANTOPRAZOLE 40 MG TAB PO SCH (11:22)
[2021-02-27] MEDS: PHENobarbital 32.4 MG TAB PO SCH (11:22)
[2021-02-27] MEDS: OXcarbazepine 300 MG TAB PO SCH (11:23)
[2021-02-27 15:34] VITALS: BP 123/74
== END 2021-02-27 16:40 | disposition home or self-care (01) | DRG 101 ==
LOC: EDBD 01:59 → ER 02:01 → TELE 06:10 → TELE-EAST 17:03
PROVIDERS: ADMIT Nurse Practitioner; ATTEND Internal Medicine
DX: G40.401 Other generalized epilepsy and epileptic syndromes, not intractable, with status epilepticus (principal); F79 Unspecified intellectual disabilities; E87.6 Hypokalemia; Z79.899 Other long term (current) drug therapy; R62.50 Unspecified lack of expected normal physiological development in childhood; Z20.822 Contact with and (suspected) exposure to COVID-19
CPT/HCPCS: 36415; 70450; 71045; 80048; 80053; 80184; 80201; 81001; 82550; 83605; 83735; 84132; 85025; 87426; 96361; 96365; 96375; G0378; J0696; J2405

== ENCOUNTER 2021-08-02 06:57 | Inpatient (IN) | payer MEDICARE, MEDICAID ==
[~2021-08-02] VITALS: Ht 175.3 cm; Wt 103.0 kg
[2021-08-02] MEDS ORDERED: LORazepam 2MG/ML-1ML VIAL ONE (07:33)
[2021-08-02] MEDS ORDERED: SODIUM CHLORIDE 0.9% 1,000 ML IV ONE (07:45)
[2021-08-02] MEDS ORDERED: LORazepam 2MG/ML-1ML VIAL IV ONE ×2 (07:45→08:00)
[2021-08-02 08:26] LABS: Basophils # (auto) 0.1 10 ^3/uL (0-0.2); Basophils % (auto) 0.5 % (0.0-2.0); Eosinophils # (auto) 0.2 10 ^3/uL (0-0.8); Eosinophils % (auto) 1.5 % (0.0-7.0); Hematocrit 41.3 % (36.0-46.0); Hemoglobin 13.6 g/dL (12.2-16.2); Mean Corpuscular Hemoglobin 31.6 pg (28.0-32.0); Mean Corpuscular Volume 95.6 fL (80.0-100.0); Monocytes # (auto) 0.8 10 ^3/uL (0-1.3); Monocytes % (auto) 6.7 % (0.0-12.0); Neutrophils # (auto) 8.7 10 ^3/uL (1.6-8.6); Neutrophils % (auto) 74.3 % (37.0-80.0); Nucleated Red Blood Cells % 0.1 %; Red Blood Cells 4.32 10^6/uL (4.0-5.20); Red Cell Distribution Width 12.3 % (11.8-14.3); White Blood Cell 11.7 10^3/uL (4.4-10.8)
[2021-08-02 08:36] LABS: Chloride 109 mmol/L (98-107); Potassium 3.5 mmol/L (3.5-5.1); Sodium 139 mmol/L (136-145)
[2021-08-02 08:42] LABS: Alanine Aminotransferase 24 U/L (13-56); Albumin 3.5 g/dL (3.4-5.0); Alkaline Phosphatase 135 U/L (45-117); Anion Gap 12 (5-15); Aspartate Aminotransferase 18 U/L (15-37); Bilirubin, Total < 0.1 mg/dL (0.2-1.0); Blood Urea Nitrogen 12 mg/dL (7-18); Calcium 8.4 mg/dL (8.5-10.1); Carbon Dioxide 18 mmol/L (21-32); GFR African American 85 mL/min; GFR Non-African American 70 mL/min; Glucose 127 mg/dL (74-106); Total Protein 8.1 g/dL (6.4-8.2)
[2021-08-02] MEDS ORDERED: PROMETHAZINE HCL 25 MG/ML 1ML IV ONE (09:45)
[2021-08-02] MEDS ORDERED: NITROGLYCERIN 0.4 MG SL TAB SL PRN ×2 (14:45→23:00)
[2021-08-02] MEDS ORDERED: LORazepam 2MG/ML-1ML VIAL IV PRN (14:45)
[2021-08-02] MEDS ORDERED: MORPHINE SULFATE INJECTION 2 MG/ML SYRG IV PRN ×3 (14:45→23:00)
[2021-08-02 17:15] VITALS: BP_SYST 84; BP_DIAS 45; BP_DIAS 49
[2021-08-02 22:00] VITALS: BP 98/35
[2021-08-02] MEDS: PHENobarbital 32.4 MG TAB PO SCH (22:14)
[2021-08-02] MEDS: OXcarbazepine 300 MG TAB PO SCH (22:14)
[2021-08-02] MEDS: TOPIRAMATE 100 MG TAB PO SCH (22:14)
[2021-08-02] MEDS ORDERED: FOLIC ACID 1 MG TAB PO ONE ×2 (22:30→22:45)
[2021-08-02] MEDS ORDERED: THIAMINE 100mg/ml INJ (200mg/2ml VIAL) IV ONE (22:45)
[2021-08-02] MEDS ORDERED: MULTIPLE VITAMINS W/ MINERALS TAB PO ONE (22:45)
[2021-08-02] MEDS ORDERED: ACETAMINOPHEN 325 MG TAB PO PRN (23:00)
[2021-08-02] MEDS ORDERED: ONDANSETRON HCL 4 MG/2 ML VIAL IV PRN (23:00)
[2021-08-02] MEDS ORDERED: cefTRIAXone 1GM/50ML D5W 50 ML IV ONE (23:00)
[2021-08-02] MEDS ORDERED: HYDROcodone-ACET 5/325MG TAB PO PRN (23:00)
[2021-08-02] MEDS ORDERED: DOCUSATE SOD 100 MG CAP PO PRN (23:00)
[2021-08-02] MEDS ORDERED: ALUM & MAG HYDROX-SIMETH LIQ(MAALOX) 30 ML PO PRN (23:00)
[2021-08-02] MEDS ORDERED: metroNIDAZOLE 500MG/100ML 100 ML IV ONE (23:00)
[2021-08-02] MEDS ORDERED: SODIUM CHLORIDE 0.9% 1,000 ML IV SCH (23:00)
[2021-08-02 23:57] LABS: Magnesium 2.5 mg/dL (1.6-2.6); Phosphorus 2.5 mg/dL (2.5-4.90)
[2021-08-03 00:04] LABS: Urine Bacteria MANY /hpf (None Seen); Urine Blood Negative /uL (Negative); Urine Mucus FEW (None Seen); Urine Specific Gravity 1.012 (1.001-1.035); Urine WBC 1 /hpf (0 - 5)
[2021-08-03 00:16] LABS: Cholesterol 159 mg/dL (< 200); HDL Cholesterol 45 mg/dL (40-59); LDL Cholesterol 88 mg/dL (< 100); Triglycerides 171 mg/dL (< 150)
[2021-08-03 00:25] LABS: Alcohol, Urine < 3.0 mg/dL (0-10); Amphetamine Screen, Urine NEGATIVE (NEGATIVE); Barbiturate Scree,Urine POSITIVE (NEGATIVE); Benzodiazephine Screen, Urine POSITIVE (NEGATIVE); Cannabinoid Screen, Urine NEGATIVE (NEGATIVE); Cocaine Screen, Urine NEGATIVE (NEGATIVE); Opiate Scree,Urine NEGATIVE (NEGATIVE); Phencyclidine Screen, Urine NEGATIVE (NEGATIVE)
[2021-08-03 04:41] LABS: Basophils # (auto) 0.1 10 ^3/uL (0-0.2); Basophils % (auto) 0.7 % (0.0-2.0); Eosinophils # (auto) 0.1 10 ^3/uL (0-0.8); Eosinophils % (auto) 0.9 % (0.0-7.0); Hematocrit 37.5 % (36.0-46.0); Hemoglobin 12.8 g/dL (12.2-16.2); Lymphocytes # (auto) 2.2 10 ^3/uL (0.4-5.4); Lymphocytes % (auto) 24.4 % (10.0-50.0); Mean Corpuscular Hemoglobin 32.2 pg (28.0-32.0); Mean Corpuscular Hgb Conc. 34.2 g/dL (32.0-36.0); Mean Corpuscular Volume 94.3 fL (80.0-100.0); Monocytes # (auto) 0.7 10 ^3/uL (0-1.3); Monocytes % (auto) 7.5 % (0.0-12.0); Neutrophils # (auto) 6.1 10 ^3/uL (1.6-8.6); Neutrophils % (auto) 66.5 % (37.0-80.0); Nucleated Red Blood Cells % 0.1 %; Red Blood Cells 3.98 10^6/uL (4.0-5.20); Red Cell Distribution Width 12.4 % (11.8-14.3); White Blood Cell 9.2 10^3/uL (4.4-10.8)
[2021-08-03 04:52] LABS: INR 1.02 (0.9-1.15); Partial Thromboplastin Time 31.6 sec (23.6-33.0)
[2021-08-03 05:00] VITALS: BP 102/46
[2021-08-03 06:10] LABS: Albumin 3.1 g/dL (3.4-5.0); Calcium 8.2 mg/dL (8.5-10.1); Magnesium 3.2 mg/dL (1.6-2.6); Potassium 3.4 mmol/L (3.5-5.1)
[2021-08-03 06:15] LABS: Bilirubin, Total 0.4 mg/dL (0.2-1.0); Phosphorus 2.2 mg/dL (2.5-4.90); Total Protein 7.5 g/dL (6.4-8.2)
[2021-08-03 09:22] VITALS: BP 118/63
[2021-08-03] MEDS ORDERED: FOLIC ACID 1 MG TAB PO SCH (10:00)
[2021-08-03] MEDS: OXcarbazepine 300 MG TAB PO SCH ×2 (10:07→21:22)
[2021-08-03] MEDS: PHENobarbital 32.4 MG TAB PO SCH ×2 (10:07→21:22)
[2021-08-03] MEDS: TOPIRAMATE 100 MG TAB PO SCH ×2 (10:07→21:22)
[2021-08-03] MEDS: MULTIPLE VITAMINS W/ MINERALS TAB PO SCH (10:07)
[2021-08-03] MEDS: THIAMINE HCL 100 MG TAB PO SCH (10:08)
[2021-08-03] MEDS: FOLIC ACID 1 MG TAB PO SCH (10:08)
[2021-08-03] MEDS: CALCIUM W/VIT D (600MG/400IU) TAB PO SCH ×2 (10:08→17:15)
[2021-08-03] MEDS: cefTRIAXone 1GM/50ML D5W 50 ML IV SCH (11:19)
[2021-08-03 13:00] VITALS: BP 109/64
[2021-08-03] MEDS: metroNIDAZOLE 500MG/100ML 100 ML IV SCH ×5 (14:00→21:30)
[2021-08-03] MEDS: SOD CHL 0.9%/ KCL 20MEQ 1,000 ML IV SCH (14:00)
[2021-08-03] MEDS ORDERED: CYANOCOBALAMIN 500 MCG TAB PO ONE (14:45)
[2021-08-03] MEDS ORDERED: NEUTRA-PHOS TABLET PO ONE (14:45)
[2021-08-03] MEDS: ENOXAPARIN SOD 40 MG/0.4 ML SYRINGE SC SCH (15:11)
[2021-08-03] MEDS: NEUTRA-PHOS TABLET PO SCH (16:58)
[2021-08-03 17:05] VITALS: BP 110/63
[2021-08-03] MEDS: LORazepam 0.5 MG TAB PO PRN (17:41)
[2021-08-03] MEDS: QUEtiapine FUMARATE 100 MG TAB PO SCH (21:22)
[2021-08-03 22:00] VITALS: BP 112/63
[2021-08-04 05:00] VITALS: BP 110/62
[2021-08-04] MEDS: metroNIDAZOLE 500MG/100ML 100 ML IV SCH ×2 (06:03→19:53)
[2021-08-04] MEDS: LEVOTHYROXINE SODIUM 50 MCG TAB PO SCH (06:39)
[2021-08-04] MEDS: CYANOCOBALAMIN 500 MCG TAB PO SCH (08:57)
[2021-08-04] MEDS: THIAMINE HCL 100 MG TAB PO SCH (08:57)
[2021-08-04] MEDS: CALCIUM W/VIT D (600MG/400IU) TAB PO SCH ×2 (08:57→17:28)
[2021-08-04] MEDS: FOLIC ACID 1 MG TAB PO SCH (08:57)
[2021-08-04] MEDS: NEUTRA-PHOS TABLET PO SCH ×3 (08:57→17:29)
[2021-08-04] MEDS: TOPIRAMATE 100 MG TAB PO SCH ×2 (08:57→20:57)
[2021-08-04] MEDS: cefTRIAXone 1GM/50ML D5W 50 ML IV SCH (08:58)
[2021-08-04] MEDS: SOD CHL 0.9%/ KCL 20MEQ 1,000 ML IV SCH (08:58)
[2021-08-04] MEDS: OXcarbazepine 300 MG TAB PO SCH ×2 (08:58→20:57)
[2021-08-04] MEDS: PHENobarbital 32.4 MG TAB PO SCH ×2 (08:58→20:56)
[2021-08-04] MEDS: MULTIPLE VITAMINS W/ MINERALS TAB PO SCH (08:58)
[2021-08-04] MEDS: ENOXAPARIN SOD 40 MG/0.4 ML SYRINGE SC SCH (08:59)
[2021-08-04 09:00] VITALS: BP 114/66
[2021-08-04 09:40] LABS: Basophils # (auto) 0 10 ^3/uL (0-0.2); Basophils % (auto) 0.2 % (0.0-2.0); Eosinophils # (auto) 0.2 10 ^3/uL (0-0.8); Eosinophils % (auto) 2.5 % (0.0-7.0); Hemoglobin 12.5 g/dL (12.2-16.2); Lymphocytes % (auto) 23.9 % (10.0-50.0); Mean Corpuscular Hemoglobin 31.6 pg (28.0-32.0); Mean Corpuscular Hgb Conc. 32.8 g/dL (32.0-36.0); Mean Corpuscular Volume 96.3 fL (80.0-100.0); Monocytes # (auto) 0.6 10 ^3/uL (0-1.3); Monocytes % (auto) 7.6 % (0.0-12.0); Neutrophils # (auto) 5.4 10 ^3/uL (1.6-8.6); Neutrophils % (auto) 65.8 % (37.0-80.0); Nucleated Red Blood Cells % 0.2 %; Red Blood Cells 3.95 10^6/uL (4.0-5.20); Red Cell Distribution Width 12.9 % (11.8-14.3); White Blood Cell 8.3 10^3/uL (4.4-10.8)
[2021-08-04 09:54] LABS: Albumin 3.2 g/dL (3.4-5.0); Calcium 8.2 mg/dL (8.5-10.1); Magnesium 2.1 mg/dL (1.6-2.6); Potassium 3.4 mmol/L (3.5-5.1)
[2021-08-04 09:55] LABS: INR 1.09 (0.9-1.15); Partial Thromboplastin Time 31.1 sec (23.6-33.0)
[2021-08-04 09:58] LABS: BUN/Creatinine Ratio 8.2; Bilirubin, Total 0.4 mg/dL (0.2-1.0); Total Protein 7.6 g/dL (6.4-8.2)
[2021-08-04 13:00] VITALS: BP 116/65
[2021-08-04] MEDS ORDERED: POTASSIUM PHOSPHATE 44 MEQ in D5W 5% 250 ML IV ONE (13:30)
[2021-08-04] MEDS ORDERED: POTASSIUM CHL 20MEQ/50ML 50 ML IV ONE (13:30)
[2021-08-04] MEDS ORDERED: POTASSIUM CHL 20 Meq TABLET PO ONE (13:30)
[2021-08-04 17:00] VITALS: BP 112/72
[2021-08-04] MEDS: LORazepam 0.5 MG TAB PO PRN (19:54)
[2021-08-04] MEDS: QUEtiapine FUMARATE 100 MG TAB PO SCH (20:56)
[2021-08-04 22:00] VITALS: BP 129/76
[2021-08-05] MEDS: metroNIDAZOLE 500MG/100ML 100 ML IV SCH (03:15)
[2021-08-05 04:13] LABS: Basophils # (auto) 0 10 ^3/uL (0-0.2); Basophils % (auto) 0.5 % (0.0-2.0); Eosinophils # (auto) 0.2 10 ^3/uL (0-0.8); Eosinophils % (auto) 1.9 % (0.0-7.0); Hematocrit 37.1 % (36.0-46.0); Hemoglobin 12.5 g/dL (12.2-16.2); Lymphocytes # (auto) 2.9 10 ^3/uL (0.4-5.4); Lymphocytes % (auto) 31.5 % (10.0-50.0); Mean Corpuscular Hemoglobin 31.9 pg (28.0-32.0); Mean Corpuscular Hgb Conc. 33.8 g/dL (32.0-36.0); Mean Corpuscular Volume 94.4 fL (80.0-100.0); Monocytes # (auto) 0.7 10 ^3/uL (0-1.3); Neutrophils # (auto) 5.3 10 ^3/uL (1.6-8.6); Neutrophils % (auto) 58.1 % (37.0-80.0); Red Blood Cells 3.93 10^6/uL (4.0-5.20); Red Cell Distribution Width 12.6 % (11.8-14.3); White Blood Cell 9.2 10^3/uL (4.4-10.8)
[2021-08-05 04:32] LABS: INR 1.05 (0.9-1.15); Partial Thromboplastin Time 32.5 sec (23.6-33.0)
[2021-08-05 04:43] LABS: Albumin 3.2 g/dL (3.4-5.0); Calcium 8.1 mg/dL (8.5-10.1); Potassium 3.4 mmol/L (3.5-5.1)
[2021-08-05] MEDS: SOD CHL 0.9%/ KCL 20MEQ 1,000 ML IV SCH (04:43)
[2021-08-05 04:46] LABS: BUN/Creatinine Ratio 5.6; Magnesium 2.1 mg/dL (1.6-2.6)
[2021-08-05 04:49] LABS: Bilirubin, Total 0.2 mg/dL (0.2-1.0)
[2021-08-05 05:00] VITALS: BP 120/72
[2021-08-05] MEDS: LEVOTHYROXINE SODIUM 50 MCG TAB PO SCH (06:07)
[2021-08-05] MEDS: CALCIUM W/VIT D (600MG/400IU) TAB PO SCH (08:00)
[2021-08-05] MEDS: NEUTRA-PHOS TABLET PO SCH ×2 (08:00→13:02)
[2021-08-05] MEDS: cefTRIAXone 1GM/50ML D5W 50 ML IV SCH (09:00)
[2021-08-05] MEDS: TOPIRAMATE 100 MG TAB PO SCH (10:00)
[2021-08-05] MEDS: OXcarbazepine 300 MG TAB PO SCH (10:00)
[2021-08-05] MEDS: FOLIC ACID 1 MG TAB PO SCH (10:00)
[2021-08-05] MEDS: PHENobarbital 32.4 MG TAB PO SCH (10:00)
[2021-08-05] MEDS: MULTIPLE VITAMINS W/ MINERALS TAB PO SCH (10:00)
[2021-08-05] MEDS: ENOXAPARIN SOD 40 MG/0.4 ML SYRINGE SC SCH (10:00)
[2021-08-05] MEDS: CYANOCOBALAMIN 500 MCG TAB PO SCH (10:00)
[2021-08-05] MEDS: THIAMINE HCL 100 MG TAB PO SCH (10:00)
[2021-08-05] MEDS ORDERED: PIPERACILLIN-TAZOB 3.375GM 100 ML IV SCH (14:00)
[2021-08-05 17:24] VITALS: BP 117/59
== END 2021-08-05 17:49 | disposition home or self-care (01) | DRG 100 ==
LOC: ER 06:57 → EDBD 06:57 → TELE 14:42 → TELE-WESTW 17:07
PROVIDERS: ADMIT Hospitalist; ATTEND Internal Medicine
DX: G40.401 Other generalized epilepsy and epileptic syndromes, not intractable, with status epilepticus (principal); J69.0 Pneumonitis due to inhalation of food and vomit; G92.8 Other toxic encephalopathy; N39.0 Urinary tract infection, site not specified; N17.9 Acute kidney failure, unspecified; F10.10 Alcohol abuse, uncomplicated; E66.01 Morbid (severe) obesity due to excess calories; F79 Unspecified intellectual disabilities; Z20.822 Contact with and (suspected) exposure to COVID-19; E03.9 Hypothyroidism, unspecified; Z79.899 Other long term (current) drug therapy; Z91.19 Patient's noncompliance with other medical treatment and regimen; Z68.33 Body mass index [BMI] 33.0-33.9, adult
CPT/HCPCS: 36415; 70450; 71045; 80053; 80061; 80307; 81001; 82085; 82306; 82550; 83036; 83735; 83880; 84100; 84146; 84443; 84484; 84550; 84702; 85025; 85610; 85730; 87040; 87086; 87426; 96361; 96365; 96375; 99291; G0378; J0696; J2543; J3490; J7060

== ENCOUNTER 2022-08-20 04:19 | Inpatient (IN) | payer MEDICARE, MEDICAID ==
[~2022-08-20] VITALS: Ht 162.6 cm; Wt 90.7 kg
[2022-08-20 05:19] LABS: Basophils # (auto) 0 10 ^3/uL (0-0.2); Basophils % (auto) 0.3 % (0.0-2.0); Eosinophils # (auto) 0 10 ^3/uL (0-0.8); Eosinophils % (auto) 0.3 % (0.0-7.0); Hemoglobin 13.5 g/dL (12.2-16.2); Lymphocytes # (auto) 0.9 10 ^3/uL (0.4-5.4); Lymphocytes % (auto) 7.3 % (10.0-50.0); Mean Corpuscular Hemoglobin 32.7 pg (28.0-32.0); Mean Corpuscular Hgb Conc. 34.6 g/dL (32.0-36.0); Mean Corpuscular Volume 94.6 fL (80.0-100.0); Monocytes # (auto) 0.5 10 ^3/uL (0-1.3); Monocytes % (auto) 4.2 % (0.0-12.0); Neutrophils # (auto) 11.4 10 ^3/uL (1.6-8.6); Neutrophils % (auto) 87.9 % (37.0-80.0); Red Blood Cells 4.12 10^6/uL (4.0-5.20); Red Cell Distribution Width 12.9 % (11.8-14.3); White Blood Cell 12.9 10^3/uL (4.4-10.8)
[2022-08-20] MEDS ORDERED: LORazepam 2MG/ML-1ML VIAL IV ONE (06:00)
[2022-08-20] MEDS ORDERED: LORazepam 2MG/ML-1ML VIAL ONE (06:01)
[2022-08-20 07:35] LABS: Albumin 3.5 g/dL (3.4-5.0); Calcium 8.1 mg/dL (8.5-10.1); Potassium 3.8 mmol/L (3.5-5.1)
[2022-08-20 07:39] LABS: BUN/Creatinine Ratio 13.7; Bilirubin, Total 0.3 mg/dL (0.2-1.0); Total Protein 7.4 g/dL (6.4-8.2)
[2022-08-20] MEDS ORDERED: PHENobarbital SODIUM 65 MG/ML VL IV SCH (10:00)
[2022-08-20] MEDS ORDERED: LORazepam 2MG/ML-1ML VIAL IV PRN ×2 (10:00)
[2022-08-20] MEDS ORDERED: PHENOBARBITAL 64.8 MG PO SCH (10:00)
[2022-08-20] MEDS ORDERED: TOPIRAMATE 100 MG TAB PO SCH (10:00)
[2022-08-20] MEDS ORDERED: DOCUSATE SOD 100 MG CAP PO PRN (10:00)
[2022-08-20] MEDS ORDERED: MORPHINE SULFATE INJ 2 MG/ml SYRG IV PRN (10:00)
[2022-08-20] MEDS ORDERED: ONDANSETRON HCL 4 MG/2 ML VIAL IV PRN (10:00)
[2022-08-20] MEDS ORDERED: OXCARBAZEPINE PO SCH (10:00)
[2022-08-20] MEDS ORDERED: SODIUM CHLORIDE 0.9% 1,000 ML IV ONE (10:30)
[2022-08-20] MEDS: SODIUM CHLORIDE 0.9% 1,000 ML IV SCH ×2 (10:33→18:20)
[2022-08-20] MEDS: ENOXAPARIN SOD 40 MG/0.4 ML SYRINGE SC SCH (11:26)
[2022-08-20] MEDS: TOPIRAMATE 100 MG TAB PO SCH ×2 (11:26→22:36)
[2022-08-20] MEDS: OXcarbazepine 300 MG TAB PO SCH ×2 (11:26→22:36)
[2022-08-20] MEDS: PHENobarbital 32.4 MG TAB PO SCH (22:36)
[2022-08-21] MEDS: SODIUM CHLORIDE 0.9% 1,000 ML IV SCH ×2 (02:40→11:00)
[2022-08-21] MEDS: ENOXAPARIN SOD 40 MG/0.4 ML SYRINGE SC SCH (09:24)
[2022-08-21] MEDS: TOPIRAMATE 100 MG TAB PO SCH (09:27)
[2022-08-21] MEDS: OXcarbazepine 300 MG TAB PO SCH (09:33)
[2022-08-21] MEDS: PHENobarbital 32.4 MG TAB PO SCH (09:33)
[2022-08-21] MEDS ORDERED: FOLIC ACID 1 MG TAB PO SCH (10:00)
[2022-08-21 13:07] VITALS: BP 102/64
== END 2022-08-21 14:05 | disposition home or self-care (01) | DRG 101 ==
LOC: EDBD 04:19 → ER 04:19 → TELE 10:11 → TELE-WESTW 23:54 → TELE 08-21 00:29
PROVIDERS: ADMIT Nurse Practitioner Family; ATTEND Family Medicine
DX: G40.401 Other generalized epilepsy and epileptic syndromes, not intractable, with status epilepticus (principal); F84.0 Autistic disorder; E03.9 Hypothyroidism, unspecified; D72.829 Elevated white blood cell count, unspecified; Z20.822 Contact with and (suspected) exposure to COVID-19; F79 Unspecified intellectual disabilities; Z79.899 Other long term (current) drug therapy
CPT/HCPCS: 36415; 70450; 71045; 80053; 80184; 84443; 84702; 85025; 87426; 96374; G0378

== ENCOUNTER 2023-07-28 08:36 | Emergency (ER) | payer MEDICARE, MEDICAID ==
[~2023-07-28] VITALS: Ht 167.6 cm; Wt 92.0 kg
[~2023-07-28 08:36] MED LIST changes: +CEFD300C2 PO; +FOLI-119 PO; -FOLI1TAB6 PO; +LEVO50TA7 PO; +POTA-220 PO
[2023-07-28 09:00] VITALS: PULSE 125; RESP 12; TEMP 99.8; O2SAT 96
[2023-07-28] MEDS ORDERED: HALOPERIDOL LACTATE 5 MG/ML INJ VIAL ONE (09:04)
[2023-07-28] MEDS ORDERED: levETIRAcetam 1000 mg/100ml 100 ML IV ONE (09:45)
[2023-07-28] MEDS ORDERED: LORazepam 2MG/ML-1ML VIAL IM ONE (09:45)
[2023-07-28 10:39] LABS: Basophils # (auto) 0 10 ^3/uL (0-0.2); Basophils % (auto) 0.4 % (0.0-2.0); Eosinophils # (auto) 0 10 ^3/uL (0-0.8); Eosinophils % (auto) 0.5 % (0.0-7.0); Hematocrit 40.8 % (36.0-46.0); Hemoglobin 13.3 g/dL (12.2-16.2); Lymphocytes # (auto) 1.1 10 ^3/uL (0.4-5.4); Lymphocytes % (auto) 13.9 % (10.0-50.0); Mean Corpuscular Hemoglobin 31.1 pg (28.0-32.0); Mean Corpuscular Hgb Conc. 32.5 g/dL (32.0-36.0); Mean Corpuscular Volume 95.7 fL (80.0-100.0); Monocytes # (auto) 0.3 10 ^3/uL (0-1.3); Monocytes % (auto) 4.3 % (0.0-12.0); Neutrophils # (auto) 6.4 10 ^3/uL (1.6-8.6); Neutrophils % (auto) 80.9 % (37.0-80.0); Nucleated Red Blood Cells % 0.1 %; Red Blood Cells 4.27 10^6/uL (4.0-5.20); Red Cell Distribution Width 13.1 % (11.8-14.3); White Blood Cell 7.9 10^3/uL (4.4-10.8)
[2023-07-28 10:55] LABS: Alanine Aminotransferase 16 U/L (7-40); Albumin 4.3 g/dL (3.2-4.8); Alkaline Phosphatase 132 U/L (46-116); Anion Gap 8 (5-15); Aspartate Aminotransferase 11 U/L (13-40); Bilirubin, Total 0.2 mg/dL (0.2-1.0); Carbon Dioxide 23 mmol/L (20-30); Chloride 109 mmol/L (98-107); Glucose 115 mg/dL (74-106); Potassium 3.9 mmol/L (3.5-5.1); Sodium 140 mmol/L (136-145); Total Protein 7.4 g/dL (5.7-8.2)
[2023-07-28 11:18] LABS: BUN/Creatinine Ratio 7.5 (10.0-20.0); Blood Urea Nitrogen < 5 mg/dL (9-23)
[2023-07-28 13:13] VITALS: BP 97/53
[2023-07-28] MEDS ORDERED: KEP500T PO (13:53)
[2023-07-28 14:25] VITALS: PULSE 108; RESP 14; O2SAT 99
== END 2023-07-28 13:53 | disposition home or self-care (01) ==
LOC: ER 08:36 → EDBD 08:36 → ER 13:53
DX: R56.9 Unspecified convulsions (principal); Z98.890 Other specified postprocedural states
CPT/HCPCS: 36415; 80053; 85025; 96372; 96374; 99284; J1953

== ENCOUNTER 2024-11-16 14:08 | Inpatient (IN) | payer MEDICARE, MEDICAID ==
[~2024-11-16] VITALS: Ht 162.6 cm; Wt 97.2 kg
[~2024-11-16 14:08] MED LIST changes: +KEP500T PO
--- NOTE | 2024-11-16 14:17 | ED.PDOC ---
History of Present Illness HPI Comments 29F who is nonverbal, has MR, was BIBA w/ sister and w/ prior Hx of Hypothyroidism and Sz which may be associated to the c/c of Sz. EMS report that the pt had a witnessed Sz of about 4 Sz lasting less than a minute per Sz and a 4 min in between each Sz. The Sz was witnessed by the sister. Sister informs EMS that the last time she had a Sz the pt had a UTI. Sister notes that the pt did not take her Sz medications today due from her waking up at 1300 today. Denies recent falls, alcohol intake, chills, fever, N/V/D, SOB, CP or no other associated symptoms, modifiers, recent injuries or sick contacts at this time. Chief Complaint: Seizure Time Seen by MD: 14:10 Primary Care Provider: CHASITY Reviewed Notes: Nurses Notes, Control Chemist Notes, Medications, Allergies Allergies: Coded Allergies: NO KNOWN ALLERGIES (Unverified , 04/26/13) Home Meds Active Scripts Levetiracetam (KEPPRA TABLET) 500 Mg Tb, 500 MG PO DAILY for 10 Days, #10 TAB Prov:KAYLI GARCIA MD 07/28/23 Cefdinir (Cefdinir) 300 Mg Cap, 300 MG PO BID for 7 Days, #14 CAP Prov:EMI KIRK MD 01/13/23 Reported Medications Levothyroxine Sodium (Levothyroxine Sodium) 50 Mcg Tab, 50 MCG PO QAM for 30 Days, MCG 01/10/23 Oxcarbazepine (Trileptal) 600 Mg Tab, 600 MG PO BID, TAB 01/10/23 Folic Acid (Folic Acid) 1 Mg Tab, 1 MG PO DAILY for 30 Days, MG 01/10/23 Potassium Chloride (Klor-Con M20) 20 Meq Tab, 20 MEQ PO QWEEKLY, TAB 01/10/23 Phenobarbital (PHENOBARBITAL) 32.4 Mg Tb, 64.8 MG PO BID, TAB 01/10/23 Topiramate (Topiramate) 100 Mg Tab, 100 MG PO BID for 30 Days, MG 01/10/23 Topiramate (Topiramate) 100 Mg Tab, 100 MG PO BID 11/13/19 Folic Acid (Folic Acid) 1 Mg Tab, 1 MG PO DAILY 03/26/19 Phenobarbital (PHENOBARBITAL) 32.4 Mg Tb, 64.8 MG PO BID 03/26/19 Oxcarbazepine (Trileptal) 600 Mg Tab, 1 TAB PO BID 03/26/19 Information Source: Relative (Sibling), Emergency Med Personnel Mode of Arrival: EMS Severity: Moderate Timing: Minutes Duration: Since onset, Minutes Prehospital treatment: None Past Medical History PAST MEDICAL HISTORY: Seizures, Thyroid (Hypo0-) Surgical History: Tonsillectomy DIRECTOR NEW PRODUCT History: No Pertinent DIRECTOR NEW PRODUCT History Family History Family History: Reviewed,noncontributory to illness, Unknown Social History Smoker: Non-Smoker Alcohol: Denies ETOH Use Drugs: Denies Drug Use Lives In: Home Constitutional: denies: chills, diaphoresis, fatigue, fever, malaise, sweats, weakness, others EENTM: denies: blurred vision, double vision, ear bleeding, ear discharge, ear drainage, ear pain, ear ringing, eye pain, eye redness, hearing loss, mouth pain, mouth swelling, nasal discharge, nose bleeding, nose congestion, nose pain, photophobia, tearing, throat pain, throat swelling, voice changes, others Respiratory: denies: cough, hemoptysis, orthopnea, SOB at rest, shortness of breath, SOB with excertion, stridor, wheezing, others Cardiovascular: denies: chest pain, dizzy spells, diaphoresis, Dyspnea on exertion, edema, irregular heart beat, left arm pain, lightheadedness, palpitations, PND, syncope, others Gastrointestinal: denies: abdomen distended, abdominal pain, blood streaked bowels, constipated, diarrhea, dysphagia, difficulty swallowing, hematemesis, melena, nausea, poor appetite, poor fluid intake, rectal bleeding, rectal pain, vomiting, others Genitourinary: denies: abnormal vagina bleeding, burning, dyspareunia, dysuria, flank pain, frequency, hematuria, incontinence, pain, , vagina discharge, urgency, others Neurological: reports: seizure; denies: dizziness, fainting, headache, left sided numbness, left sided weakness, numbness, paresthesia, pre-existing deficit, right sided numbness, right sided weakness, speech problems, tingling, tremors, weakness, others Musculoskeletal: denies: back pain, gout, joint pain, joint swelling, muscle pain, muscle stiffness, neck pain, others Integumetry: denies: bruises, change in color, change in hair/nails, dryness, laceration, lesions, lumps, rash, wounds, others Allergic/Immunocompromised: denies: Difficulty Healing, Frequent Infections, Hives, Itching, others Hematologic/Lymphatic: denies: anemia, blood clots, easy bleeding, easy bruising, swollen glands, others Endocrine: denies: excessive hunger, excessive sweating, excessive thirst, excessive urination, flushing, intolerance to cold, intolerance to heat, unexplained weight gain, unexplained weight loss, others Psychiatric: denies: anxiety, bipolar disorder, depression, hopeless, panic disorder, schizophrenia, sleepless, suicidal, others All Other Systems: Reviewed and Negative Physical Exam General Appearance: Moderate Distress, Normal HEENT: Normal ENT Inspection, Pharynx Normal, TMs Normal Neck: Full Range of Motion, Non-Tender, Normal, Normal Inspection Respiratory: Chest Non-Tender, Lungs Clear, No Accessory Muscle Use, No Respiratory Distress, Normal Breath Sounds Cardiovascular: No Edema, No JVD, No Murmur, No Gallop, Normal Peripheral Pulses, Regular Rate/Rhythm Breast Exam: Deferred Gastrointestinal: No Organomegaly, Non Tender, No Pulsatile Mass, Normal Bowel Sounds, Soft Genitalia: Deferred Pelvic: Deferred Rectal: Deferred Extremities: No calf tenderness, Normal capillary refill, Normal inspection, Normal range of motion, Non-tender, No pedal edema Musculoskeletal : Apperance: Normal Neurologic: Alert, card brusher II-XII nml as Tested, No Motor Deficits, Normal Affect, Normal Mood, No Sensory Deficits Cerebellar Function: NOT DONE Reflexes: NOT DONE Skin: Dry, Normal Color, Warm Peripheral Pulses: 3+ Radial (R), 3+ Radial (L) Lymphatic: No Adenopathy Was a procedure done? Was a procedure done?: No Differential Dx Considerations may include: Seizure Electrolyte imbalance X-Ray, Labs, Meds, VS Vital Signs Date Time Temp Pulse Resp B/P (MAP) Pulse Ox O2 Delivery O2 Flow Rate FiO2 11/16/24 15:27 113 20 98 Room Air* 0 21 11/16/24 15:27 118 20 124/56 (78) 98 11/16/24 14:12 20 124/56 (78) Lab Test 11/16/24 15:24 Range/Units White Blood Count 9.5 4.4-10.8 10^3/uL Red Blood Count 4.26 4.0-5.20 10^6/uL Hemoglobin 13.2 12.2-16.2 g/dL Hematocrit 40.9 36.0-46.0 % Mean Corpuscular Volume 95.9 80.0-100.0 fL Mean Corpuscular Hemoglobin 30.9 28.0-32.0 pg Mean Corpuscular Hemoglobin Concent 32.2 32.0-36.0 g/dL Red Cell Distribution Width 13.3 11.8-14.3 % Platelet Count 221 140-450 10^3/uL Mean Platelet Volume 8.2 6.9-10.8 fL Neutrophils (%) (Auto) 86.2 H 37.0-80.0 % Lymphocytes (%) (Auto) 9.2 L 10.0-50.0 % Monocytes (%) (Auto) 3.8 0.0-12.0 % Eosinophils (%) (Auto) 0.4 0.0-7.0 % Basophils (%) (Auto) 0.4 0.0-2.0 % Neutrophils # (Auto) 8.2 1.6-8.6 10 ^3/uL Lymphocytes # (Auto) 0.9 0.4-5.4 10 ^3/uL Monocytes # (Auto) 0.4 0-1.3 10 ^3/uL Eosinophils # (Auto) 0 0-0.8 10 ^3/uL Basophils # (Auto) 0 0-0.2 10 ^3/uL Nucleated Red Blood Cells 0.1 % Sodium Level 142 136-145 mmol/L Potassium Level 4.0 3.5-5.1 mmol/L Chloride Level 109 H 98-107 mmol/L Carbon Dioxide Level 23 20-31 mmol/L Anion Gap 10 5-15 Blood Urea Nitrogen 9 9-23 mg/dL Creatinine 0.62 0.550-1.02 mg/dL Glomerular Filtration Rate Calc 122 >90 mL/min BUN/Creatinine Ratio 14.5 10.0-20.0 Serum Glucose 115 H 74-106 mg/dL Calcium Level 9.0 8.7-10.4 mg/dL Current Medications Medications (Trade) Dose Ordered Sig/Chrystal Route Start Time Stop Time Status Last Admin Midazolam HCl (Versed Injection) 5 mg ONCE ONCE IM 11/16/24 14:30 11/16/24 14:31 DC 11/16/24 14:54 Sodium Chloride 1,000 ml @ 150 mls/hr Q6H40M ONCE IV 11/16/24 14:30 11/16/24 21:09 11/16/24 14:56 Levetiracetam 100 ml @ 400 mls/hr ONCE ONCE IV 11/16/24 15:15 11/16/24 15:29 DC 11/16/24 15:26 Lorazepam (Ativan Inj) 1 mg ONCE ONCE IV 11/16/24 15:15 11/16/24 15:16 DC 11/16/24 15:26 Sister at bedside. Had a seizure witnessed by her. Difficult to get history from the patient. Vitals stable. Sister does state that she does take her seizure medication. No sign of any injury. Was given Versed. Establish intravenous access. Was given fluids. CT of the head reviewed does not show any acute changes. Explained to the sister. Continue monitoring. Time of 1ST Reevaluation: 14:40 Reevaluation 1ST: Unchanged Patient Education/Counseling: Diagnosis, Treatment, Prognosis Family Education/Counseling: Diagnosis, Treatment, Prognosis Departure 1 Departure Time of Disposition: 14:38 Impression: Primary Impression: Metabolic encephalopathy Additional Impression: Seizure disorder Disposition: ADMITTED INPATIENT Admit to: Med Surg Condition: Guarded Critical Care Note Critical Care Time?: No Stability Stability form required: No Heart Score Heart Score: Heart Score Response (Comments) Value History N/A 0 EKG N/A 0 Age N/A 0 Risk Factors N/A 0 Troponin N/A 0 Total 0 I personally scribed for KAYLI GARCIA MD ([email or web address]) on 11/16/24 at 14:17. Electronically submitted by Nathen Jerome ([email or web address]). KAYLI GARCIA MD Nov 16, 2024 14:17
[2024-11-16] MEDS: MIDAZOLAM HCL 5 MG/ML-1ML VIAL IM ONE (14:54)
[2024-11-16] MEDS: SODIUM CHLORIDE 0.9% 1,000 ML IV ONE (14:56)
[2024-11-16] MEDS: levETIRAcetam 1000 mg/100ml 100 ML IV ONE (15:26)
[2024-11-16] MEDS: LORazepam 2MG/ML-1ML VIAL IV ONE (15:26)
[2024-11-16 15:27] VITALS: PULSE 113; RESP 20; O2SAT 98
[2024-11-16 15:36] LABS: Basophils # (auto) 0 10 ^3/uL (0-0.2); Basophils % (auto) 0.4 % (0.0-2.0); Eosinophils # (auto) 0 10 ^3/uL (0-0.8); Eosinophils % (auto) 0.4 % (0.0-7.0); Hematocrit 40.9 % (36.0-46.0); Hemoglobin 13.2 g/dL (12.2-16.2); Lymphocytes # (auto) 0.9 10 ^3/uL (0.4-5.4); Lymphocytes % (auto) 9.2 % (10.0-50.0); Mean Corpuscular Hemoglobin 30.9 pg (28.0-32.0); Mean Corpuscular Hgb Conc. 32.2 g/dL (32.0-36.0); Mean Corpuscular Volume 95.9 fL (80.0-100.0); Monocytes # (auto) 0.4 10 ^3/uL (0-1.3); Monocytes % (auto) 3.8 % (0.0-12.0); Neutrophils # (auto) 8.2 10 ^3/uL (1.6-8.6); Neutrophils % (auto) 86.2 % (37.0-80.0); Nucleated Red Blood Cells % 0.1 %; Platelet Count (auto) 221 10^3/uL (140-450); Red Blood Cells 4.26 10^6/uL (4.0-5.20); Red Cell Distribution Width 13.3 % (11.8-14.3); White Blood Cell 9.5 10^3/uL (4.4-10.8)
[2024-11-16 15:46] LABS: Sodium 142 mmol/L (136-145)
[2024-11-16 15:47] LABS: Anion Gap 10 (5-15); Carbon Dioxide 23 mmol/L (20-31)
[2024-11-16 15:49] LABS: Chloride 109 mmol/L (98-107)
[2024-11-16 15:52] LABS: BUN/Creatinine Ratio 14.5 (10.0-20.0); Blood Urea Nitrogen 9 mg/dL (9-23)
[2024-11-16 15:53] LABS: Glucose 115 mg/dL (74-106)
--- NOTE | 2024-11-16 16:39 | DVH ---
EXAM: CT HEAD WITHOUT CONTRAST INDICATION: seizure TECHNIQUE: CT of the head without intravenous contrast. Radiation Dose : 1. Head: CT Dose: CTDI volume is 58.43 mGy. Dose-length product is 1034.58 mGy*cm The dose indicators for CT are the volume Computed Tomography (CT) Dose Index (CTDIvol) and the Dose Length Product (DLP), and are measured in units of mGy and mGy-cm, respectively. These indicators are not patient dose, but values generated from the CT scanner acquisition factors. The report includes radiation exposure data for exposures received during this examination. COMPARISON: HEAD WITHOUT CONTRAST on DOS: 08/20/22, HEAD WITHOUT CONTRAST on DOS: 08/02/21, HEAD WITHO UT CONTRAST on DOS: 02/25/21 FINDINGS: There is no evidence of acute intracranial hemorrhage, extra-axial collection, mass effect, midline s hift, herniation or hydrocephalus. The ventricles, sulci and cisterns are age appropriate. The hidalgo-white differentiation is intact. Patchy periventricular and subcortical white matter hypoattenuation is nonspecific but may be related to small vessel ischemic disease. The visualized paranasal sinuses and mastoid air cells are clear. The surrounding soft tissues and osseous structures are unremarkable. IMPRESSION: 1. No acute intracranial abnormality. Radiation optimization: All CT scans at this facility use at least one of these dose optimization louis hniques: automated exposure control mA and/or kV adjustment per patient size (includes targeted exam s where dose is matched to clinical indication) or iterative reconstruction.
[2024-11-16] MEDS ORDERED: ACETAMINOPHEN 325 MG TAB PO PRN (20:15)
[2024-11-16] MEDS ORDERED: LORazepam 2MG/ML-1ML VIAL IV PRN (20:15)
[2024-11-16] MEDS ORDERED: ONDANSETRON HCL 4 MG/2 ML VIAL IV PRN (20:15)
[2024-11-16 20:16] LABS: Urine Bacteria FEW /hpf (None Seen); Urine Blood Negative /uL (Negative); Urine Clarity Turbid (Clear); Urine Color Light-Yellow (Yellow); Urine Protein, UAD Negative (Negative); Urine Specific Gravity 1.021 (1.001-1.035); Urine Squamous Epithelial Cell MOD /hpf (<5); Urine Urobilinogen Normal (Negative); Urine WBC 3 /HPF (0-5)
[2024-11-16] MEDS: OXcarbazepine 300 MG TAB PO SCH (22:08)
[2024-11-16] MEDS: TOPIRAMATE 100 MG TAB PO SCH (22:08)
[2024-11-16] MEDS: PHENobarbital 32.4 MG TAB PO SCH (22:09)
--- NOTE | 2024-11-16 22:52 | DVHHP2 ---
History of Present Illness Reason for Visit: Seizure History of Present Illness 29-year-old female with a history of seizures and developmentally delay presents for evaluation of seizure activity today. Patient had a witnessed seizure at home lasting approximately 4 minutes. Patient woke up late today and had not taken her antiseizure medication. No oral trauma or head trauma. Past Medical History Hypothyroid, seizures, developmentally delayed Past Surgical History Tonsillectomy Family History Noncontributory Smoke: No ALCOHOL: none Drugs: None Lives: with Family Review of Systems Review of Systems Review of systems are currently negative otherwise addressed in HPI. Allergies: Coded Allergies: NO KNOWN ALLERGIES (Unverified , 04/26/13) Medications Current Medications Medications Dose Ordered Sig/Chrystal Route Start Time Stop Time Status Last Admin Dose Admin Phenobarbital 64.8 mg Q12HR PO 11/16/24 22:00 11/16/24 22:09 64.8 MG Levetiracetam 500 mg DAILY PO 11/17/24 10:00 Topiramate 100 mg Q12HR PO 11/16/24 22:00 11/16/24 22:08 100 MG Levothyroxine Sodium 50 mcg QAM@0600 PO 11/17/24 06:00 Oxcarbazepine 600 mg Q12HR PO 11/16/24 22:00 11/16/24 22:08 600 MG Lorazepam 1 mg Q5MINP PRN IV 11/16/24 20:15 Ondansetron HCl 4 mg Q4HP PRN IV 11/16/24 20:15 Acetaminophen 650 mg Q6HP PRN PO 11/16/24 20:15 Exam Vital Signs Vital Signs Date Time Temp Pulse Resp B/P (MAP) Pulse Ox O2 Delivery O2 Flow Rate FiO2 11/16/24 22:00 97.6 81 12 106/62 (77) 100 97.6 11/16/24 19:30 Room Air* 0 21 Exam Gen: 29-year-old female in no apparent distress Skin: Warm, dry, normal color and texture, no rash. HEENT: Normocephalic atraumatic, mucous membranes moist and pink. Neck: Cervical and supraclavicular nodes normal without enlargement, trachea is midline, thyroid gland is normal without masses. Pulmonary: Clear to auscultation and percussion bilaterally. Cardiac: Regular rate and rhythm. No murmur Abdomen: Soft, nontender, nondistended, bowel sounds present all 4 quadrants, no guarding, no rigidity, no organomegaly. Extremities: No cyanosis, clubbing, no edema Neuro: Lethargic, no focal neurologic deficits Labs/Xrays ORDERING PHYSICIAN: KAYLI GARCIA MD PROCEDURE(s): HWOCT - HEAD WITHOUT CONTRAST REASON: seizure ORDER NUMBER(s): [id number], ACCESSION NUMBER(s): [id number] EXAM: CT HEAD WITHOUT CONTRAST INDICATION: seizure TECHNIQUE: CT of the head without intravenous contrast. Radiation Dose : 1. Head: CT Dose: CTDI volume is 58.43 mGy. Dose-length product is 1034.58 mGy*cm The dose indicators for CT are the volume Computed Tomography (CT) Dose Index (CTDIvol) and the Dose Length Product (DLP), and are measured in units of mGy and mGy-cm, respectively. These indicators are not patient dose, but values generated from the CT scanner acquisition factors. The report includes radiation exposure data for exposures received during this examination. COMPARISON: HEAD WITHOUT CONTRAST on DOS: 08/20/22, HEAD WITHOUT CONTRAST on DOS: 08/02/21, HEAD WITHOUT CONTRAST on DOS: 02/25/21 FINDINGS: There is no evidence of acute intracranial hemorrhage, extra-axial collection, mass effect, midline shift, herniation or hydrocephalus. The ventricles, sulci and cisterns are age appropriate. The hidalgo-white differentiation is intact. Patchy periventricular and subcortical white matter hypoattenuation is nonspecific but may be related to small vessel ischemic disease. The visualized paranasal sinuses and mastoid air cells are clear. The surrounding soft tissues and osseous structures are unremarkable. IMPRESSION: 1. No acute intracranial abnormality. Radiation optimization: All CT scans at this facility use at least one of these dose optimization techniques: automated exposure control mA and/or kV adjustme nt per patient size (includes targeted exams where dose is matched to clinical indication) or iterative reconstruction. Labs Test 11/16/24 18:44 11/16/24 15:24 Range/Units Urine Color Light-yellow Yellow Urine Clarity Turbid H Clear Urine pH 6.0 5.0-9.0 Urine Specific [place] 1.021 1.001-1.035 Urine Protein Negative Negative Urine Ketones Trace Negative Urine Blood Negative Negative /uL Urine Nitrite Negative Negative Urine Bilirubin Negative Negative Urine Urobilinogen Normal Negative mg/dL Urine Leukocyte Esterase 1+ Negative /uL Urine RBC 2 0 - 4 /hpf Urine Microscopic WBC 3 0-5 /HPF Urine Squamous Epithelial Cells Mod <5 /hpf Urine Bacteria Few H None Seen /hpf Urine Glucose Normal Normal mg/dL White Blood Count 9.5 4.4-10.8 10^3/uL Red Blood Count 4.26 4.0-5.20 10^6/uL Hemoglobin 13.2 12.2-16.2 g/dL Hematocrit 40.9 36.0-46.0 % Mean Corpuscular Volume 95.9 80.0-100.0 fL Mean Corpuscular Hemoglobin 30.9 28.0-32.0 pg Mean Corpuscular Hemoglobin Concent 32.2 32.0-36.0 g/dL Red Cell Distribution Width 13.3 11.8-14.3 % Platelet Count 221 140-450 10^3/uL Mean Platelet Volume 8.2 6.9-10.8 fL Neutrophils (%) (Auto) 86.2 H 37.0-80.0 % Lymphocytes (%) (Auto) 9.2 L 10.0-50.0 % Monocytes (%) (Auto) 3.8 0.0-12.0 % Eosinophils (%) (Auto) 0.4 0.0-7.0 % Basophils (%) (Auto) 0.4 0.0-2.0 % Neutrophils # (Auto) 8.2 1.6-8.6 10 ^3/uL Lymphocytes # (Auto) 0.9 0.4-5.4 10 ^3/uL Monocytes # (Auto) 0.4 0-1.3 10 ^3/uL Eosinophils # (Auto) 0 0-0.8 10 ^3/uL Basophils # (Auto) 0 0-0.2 10 ^3/uL Nucleated Red Blood Cells 0.1 % Sodium Level 142 136-145 mmol/L Potassium Level 4.0 3.5-5.1 mmol/L Chloride Level 109 H 98-107 mmol/L Carbon Dioxide Level 23 20-31 mmol/L Anion Gap 10 5-15 Blood Urea Nitrogen 9 9-23 mg/dL Creatinine 0.62 0.550-1.02 mg/dL Glomerular Filtration Rate Calc 122 >90 mL/min BUN/Creatinine Ratio 14.5 10.0-20.0 Serum Glucose 115 H 74-106 mg/dL Calcium Level 9.0 8.7-10.4 mg/dL Assessment/Plan Assessment/Plan Assessment Breakthrough seizure Hypothyroid Developmentally delayed Plan Admit the patient to Med surge to the hospitalist Resume home medications neurology consultation Seizure precautions in place Continue treatment per orders. Plan discussed with: Patient My Orders Orders - EMI CRUM Procedure Category Date Status Time Admit ADMIT 11/16/24 Transmitted 20:02 * Neurology Consult CONS 11/16/24 Transmitted 20:04 Phenobarbital Tablet PHA 11/16/24 In Process 22:00 Levetiracetam Tablet PHA 11/17/24 In Process (Keppra Tablet) 10:00 Topiramate (Topamax) PHA 11/16/24 In Process 22:00 Levothyroxine Tablet PHA 11/17/24 In Process (Synthroid Tablet) 06:00 Oxcarbazepine Tablet PHA 11/16/24 In Process (Trileptal Tablet) 22:00 Lorazepam 2mg/Ml Inj PHA 11/16/24 In Process (Ativan Inj) 20:15 Seizure Precautions REKHA 11/16/[address] 20:04 Regular Diet DIET 11/17/24 Transmitted Breakfast Ondansetron Hcl PHA 11/16/24 In Process (Zofran) 20:15 Condition: Stable REKHA 11/16/24 In Process 20:04 Acetaminophen Tablet PHA 11/16/24 In Process (Tylenol Tablet) 20:15 Bedrest With Bathroom REKHA 11/16/24 In Process Privileg 20:04 Date of Service: Nov 16, 2024 Billing Provider: EMI CRUM Common Visit Codes: [id number] INP/OBS CARE (MOD) EMI CRUM Nov 16, 2024 22:52
[2024-11-16] MEDS: NITROFURANTOIN 100 mg CAP PO SCH (23:15)
[2024-11-17] MEDS: LEVOTHYROXINE SODIUM 50 MCG TAB PO SCH (05:32)
[2024-11-17 05:42] VITALS: BP 112/52; PULSE 83; RESP 17; TEMP 98.1; O2SAT 97
[2024-11-17 09:00] VITALS: BP 104/58; PULSE 69; RESP 20; TEMP 97.7; O2SAT 98
[2024-11-17] MEDS: levETIRAcetam 500 MG TAB PO SCH (10:13)
--- NOTE | 2024-11-17 13:20 | DVHPN2 ---
Reviewed: Care Plan, H&P, Labs, Medications, Previous Orders, Radiology Changes from previous H/P or p: No Changes Objective Vitals Vital Signs Date Time Temp Pulse Resp B/P (MAP) Pulse Ox O2 Delivery O2 Flow Rate FiO2 11/17/24 09:00 97.7 69 20 104/58 (73) 98 97.7 11/17/24 08:00 Room Air* 0 21 Intake/Output Intake and Output 11/17/24 07:00 Intake Total 850 ml Balance 850 ml Intake IV Total 850 ml Medications Current Medications Medications Dose Ordered Sig/Chrystal Route Start Time Stop Time Status Last Admin Dose Admin Phenobarbital 64.8 mg Q12HR PO 11/16/24 22:00 11/17/24 10:12 64.8 MG Levetiracetam 500 mg DAILY PO 11/17/24 10:00 11/17/24 10:13 500 MG Topiramate 100 mg Q12HR PO 11/16/24 22:00 11/17/24 10:13 100 MG Levothyroxine Sodium 50 mcg QAM@0600 PO 11/17/24 06:00 11/17/24 05:32 50 MCG Oxcarbazepine 600 mg Q12HR PO 11/16/24 22:00 11/17/24 10:13 600 MG Lorazepam 1 mg Q5MINP PRN IV 11/16/24 20:15 Ondansetron HCl 4 mg Q4HP PRN IV 11/16/24 20:15 Acetaminophen 650 mg Q6HP PRN PO 11/16/24 20:15 Nitrofurantoin Macrocrystals 100 mg BID PO 11/16/24 23:00 11/17/24 10:12 100 MG Laboratory Results Laboratory Tests 11/16/24 15:24 Chemistry Test 11/16/24 15:24 Calcium Level 9.0 mg/dL (8.7-10.4) Urinalysis Test 11/16/24 18:44 Urine Color Light-yellow (Yellow) Urine Clarity Turbid (Clear) H Urine pH 6.0 (5.0-9.0) Urine Specific [place] 1.021 (1.001-1.035) Urine Protein Negative (Negative) Urine Ketones Trace (Negative) Urine Blood Negative /uL (Negative) Urine Nitrite Negative (Negative) Urine Bilirubin Negative (Negative) Urine Urobilinogen Normal mg/dL (Negative) Urine Leukocyte Esterase 1+ /uL (Negative) Urine RBC 2 /hpf (0 - 4) Urine Microscopic WBC 3 /HPF (0-5) Urine Squamous Epithelial Cells Mod /hpf (<5) Urine Bacteria Few /hpf (None Seen) H Urine Glucose Normal mg/dL (Normal) Labs and/or images reviewed: Labs reviewed by me, Image(s) reviewed by me Assessment/Plan Assessment/Plan Breakthrough seizures: Continue home medications Trileptal Topamax phenobarbital and Keppra neurology consult for Dr. lowry pending Hypothyroidism Developmental delay Medication Noncompliance Examined the patient with the help of executive compensation analyst Mother at the bedside Plan discussed with: Patient Date of Service: Nov 17, 2024 Billing Provider: ELAINA SNYDER MD Common Visit Codes: [id number] INP/OBS CARE(HIGH) ELAINA SNYDER MD Nov 17, 2024 13:20
[2024-11-17 17:00] VITALS: BP 106/67; PULSE 94; RESP 15; TEMP 97.3; O2SAT 96
[2024-11-17 20:00] VITALS: PULSE 98; RESP 16; O2SAT 93
[2024-11-17 21:00] VITALS: BP 107/71; PULSE 95; RESP 16; TEMP 98.6; O2SAT 93
--- NOTE | 2024-11-17 22:54 | DVHINCON2 ---
Date of service: Nov 17, [address] Luz Reason for Consultation Seizure History of Present Illness is a 29 years old female with a history of mental rotation, autism, seizure disorder, she was brought to the [facility] on 11/16/24 with a chief complaint of seizure activity. At this time, she is awake, happy, oriented to person and place, the history is obtained from her sister, chart review I saw on 03/31/2023 for seizure The patient was had three major seizure activity on 11/15/2024 at home, in that she was shaking all over body, eyes rolling back, nonresponsive event was about 20 seconds each. She had one more similar events in the hospital. She had one yesterday and three this morning event that she was nonresponsive, eyes rolling back, trying to bite her tongue/cricket, mild shaking in the arms, the events were only 5 seconds Lab tests showed evidence of UTI, and her sister remembers having seizure triggered by UTI previously I saw her in my office, and that she is on the following medications Topamax 100 mg twice a day Phenobarbital 64.8 mg twice a day, Oxcarbazepine 600 mg twice a day Folate 1mg Qd Urinalysis, 11/16/2024: WBC: 3, urine leukocyte esterase: 1+ CBC, 11/16/2024: Unremarkable BMP, 11/16/2024: Unremarkable CT head, 03/31/2023: No acute intracranial abnormality. Past Medical History Seizures, mental reevaluation Past Surgical History Tonsillectomy Family History: Patient reports no known family medical history. Family History She is adopted Social History Smoker: Non-Smoker Alcohol: Denies ETOH Use Drugs: Denies Drug Use Lives In: Home Allergies: Coded Allergies: NO KNOWN ALLERGIES (Unverified , 04/26/13) Home Meds Reported Medications Levothyroxine Sodium (Levothyroxine Sodium) 50 Mcg Tab, 50 MCG PO QAM for 30 Days, MCG 01/10/23 Oxcarbazepine (Trileptal) 600 Mg Tab, 600 MG PO BID, TAB 01/10/23 Folic Acid (Folic Acid) 1 Mg Tab, 1 MG PO DAILY for 30 Days, MG 01/10/23 Potassium Chloride (Klor-Con M20) 20 Meq Tab, 20 MEQ PO QWEEKLY, TAB 01/10/23 Phenobarbital (PHENOBARBITAL) 32.4 Mg Tb, 64.8 MG PO BID, TAB 01/10/23 Topiramate (Topiramate) 100 Mg Tab, 100 MG PO BID for 30 Days, MG 01/10/23 Topiramate (Topiramate) 100 Mg Tab, 100 MG PO BID 11/13/19 Folic Acid (Folic Acid) 1 Mg Tab, 1 MG PO DAILY 03/26/19 Phenobarbital (PHENOBARBITAL) 32.4 Mg Tb, 64.8 MG PO BID 03/26/19 Oxcarbazepine (Trileptal) 600 Mg Tab, 1 TAB PO BID 03/26/19 Current Medications Current Medications Medications (Trade) Dose Ordered Sig/Chrystal Route PRN Reason Start Time Stop Time Status Last Admin Levetiracetam (Keppra Tablet) 500 mg DAILY PO 11/17/24 10:00 11/17/24 10:13 Levothyroxine Sodium (Synthroid Tablet) 50 mcg QAM@0600 PO 11/17/24 06:00 11/17/24 05:32 Nitrofurantoin Macrocrystals (Macrobid) 100 mg BID PO 11/16/24 23:00 11/17/24 22:34 Review of Systems As above, the other systems are negative Vital Signs Vital Signs Date Time Temp Pulse Resp B/P (MAP) Pulse Ox O2 Delivery O2 Flow Rate FiO2 11/17/24 21:00 98.6 95 16 107/71 (83) 93 98.6 11/17/24 08:00 Room Air* 0 21 Physical Exam GENERAL EXAM: General: the patient is well developed and nourished. No acute distress. HEENT: Normocephalic, neck is supple, no carotid bruits. No mass. RESPIRATORY: Normal respiratory effort with symmetrical lung expansion. Lungs clear to auscultation. CARDIOVASCULAR: Regular rate and rhythm with no murmurs. S1, S2. ABDOMEN: Soft, nontender, normal bowel sound NEUROLOGICAL: MENTAL STATUS: Awake and alert. Oriented to person and place, she is happy, SPEECH, LANGUAGE, HIGHER CORTICAL FUNCTION: She talks a little bit, no aphasia or dysarthria CRANIAL NERVES: #2: Intact visual [place] to confrontation. The optic discs were sharp. #3,4,6: Pupils are equal, round and reactive. EOMs full and conjugate #5: Facial sensation intact in all three divisions bilaterally. Mandibular strength intact. #7: Facial muscles symmetrical and strength intact. #8: Hearing grossly normal to voice. #9,10: Uvula and soft palate rise in the midline. Swallow and voice are normal. #11: Trapezius and sternomastoid strength intact bilaterally. #12: Tongue midline. No fasciculations or atrophy. SENSATION: Sensation to touch and pinprick is normal. MOTOR: Normal tone in the upper and lower extremity. Normal muscle bulk. No fasciculations. No abnormal movements or posturing. Muscle strength of the major groups in the extremities is 5/5. REFLEXES: Deep tendon reflexes are symmetrical. No pathological reflexes. CEREBELLAR/COORDINATION: Normal finger-nose tests GAIT/STATION: deferred. Labs/Diagnostic Data Labs Test 11/16/24 18:44 11/16/24 15:24 Range/Units Urine Color Light-yellow Yellow Urine Clarity Turbid H Clear Urine pH 6.0 5.0-9.0 Urine Specific [place] 1.021 1.001-1.035 Urine Protein Negative Negative Urine Ketones Trace Negative Urine Blood Negative Negative /uL Urine Nitrite Negative Negative Urine Bilirubin Negative Negative Urine Urobilinogen Normal Negative mg/dL Urine Leukocyte Esterase 1+ Negative /uL Urine RBC 2 0 - 4 /hpf Urine Microscopic WBC 3 0-5 /HPF Urine Squamous Epithelial Cells Mod <5 /hpf Urine Bacteria Few H None Seen /hpf Urine Glucose Normal Normal mg/dL White Blood Count 9.5 4.4-10.8 10^3/uL Red Blood Count 4.26 4.0-5.20 10^6/uL Hemoglobin 13.2 12.2-16.2 g/dL Hematocrit 40.9 36.0-46.0 % Mean Corpuscular Volume 95.9 80.0-100.0 fL Mean Corpuscular Hemoglobin 30.9 28.0-32.0 pg Mean Corpuscular Hemoglobin Concent 32.2 32.0-36.0 g/dL Red Cell Distribution Width 13.3 11.8-14.3 % Platelet Count 221 140-450 10^3/uL Mean Platelet Volume 8.2 6.9-10.8 fL Neutrophils (%) (Auto) 86.2 H 37.0-80.0 % Lymphocytes (%) (Auto) 9.2 L 10.0-50.0 % Monocytes (%) (Auto) 3.8 0.0-12.0 % Eosinophils (%) (Auto) 0.4 0.0-7.0 % Basophils (%) (Auto) 0.4 0.0-2.0 % Neutrophils # (Auto) 8.2 1.6-8.6 10 ^3/uL Lymphocytes # (Auto) 0.9 0.4-5.4 10 ^3/uL Monocytes # (Auto) 0.4 0-1.3 10 ^3/uL Eosinophils # (Auto) 0 0-0.8 10 ^3/uL Basophils # (Auto) 0 0-0.2 10 ^3/uL Nucleated Red Blood Cells 0.1 % Sodium Level 142 136-145 mmol/L Potassium Level 4.0 3.5-5.1 mmol/L Chloride Level 109 H 98-107 mmol/L Carbon Dioxide Level 23 20-31 mmol/L Anion Gap 10 5-15 Blood Urea Nitrogen 9 9-23 mg/dL Creatinine 0.62 0.550-1.02 mg/dL Glomerular Filtration Rate Calc 122 >90 mL/min BUN/Creatinine Ratio 14.5 10.0-20.0 Serum Glucose 115 H 74-106 mg/dL Calcium Level 9.0 8.7-10.4 mg/dL Assessment Status epileptics Grand mal seizure Mental revision Urine tract infection Plan/Recommendation Monitoring Supportive treatment Telemetry Aerosol isolation IV antibiotics Dexamethasone Topamax 100 mg twice a day Phenobarbital 64.8 mg twice a day, Oxcarbazepine 600 mg twice a day Folate 1mg Qd Ativan for seizure breakthrough Ceftriaxone 1000 mg IV daily More recommendation per clinical course Prognosis: Poor Time spent is 45 minutes, 50% of time was [id number] consultation This medical document was created using an electronic medical record system with [employer] dictation system. Although this document has been carefully reviewed, there may still be some phonetic and typographical errors. These areas are purely typographical due to imperfections of the software programs, and do not reflect any compromise in the patient's medical care. Plan discussed with: Other JAYSHREE GASPAR MD Nov 17, 2024 22:54
[2024-11-17] MEDS: cefTRIAXone 1GM/50ML D5W 50 ML IV ONE (23:30)
[2024-11-18] VITALS (8 sets, daily range): BP systolic 92–110; BP diastolic 47–68; PULSE 84–114; RESP 14–16; TEMP 97–97.7; O2SAT 18–96
[2024-11-18] MEDS ORDERED: CIPR-173 PO (11:01)
--- NOTE | 2024-11-18 11:02 | DVHPN2 ---
Reviewed: Care Plan, H&P, Labs, Medications, Previous Orders, Radiology Changes from previous H/P or p: No Changes Objective Vitals Vital Signs Date Time Temp Pulse Resp B/P (MAP) Pulse Ox O2 Delivery O2 Flow Rate FiO2 11/18/24 08:45 97.0 84 16 92/48 (63) 96 97.0 11/17/24 20:00 Room Air* 0 21 Intake/Output Intake and Output 11/18/24 07:00 Intake Total 700 ml Balance 700 ml Intake Oral 700 ml # Voids 5 Medications Current Medications Medications Dose Ordered Sig/Chrystal Route Start Time Stop Time Status Last Admin Dose Admin Phenobarbital 64.8 mg Q12HR PO 11/16/24 22:00 11/17/24 22:36 64.8 MG Topiramate 100 mg Q12HR PO 11/16/24 22:00 11/17/24 22:33 100 MG Levothyroxine Sodium 50 mcg QAM@0600 PO 11/17/24 06:00 11/18/24 06:29 50 MCG Oxcarbazepine 600 mg Q12HR PO 11/16/24 22:00 11/17/24 22:32 600 MG Lorazepam 1 mg Q5MINP PRN IV 11/16/24 20:15 Ondansetron HCl 4 mg Q4HP PRN IV 11/16/24 20:15 Acetaminophen 650 mg Q6HP PRN PO 11/16/24 20:15 Nitrofurantoin Macrocrystals 100 mg BID PO 11/16/24 23:00 11/17/24 22:34 100 MG Ceftriaxone Sodium 50 ml @ 100 mls/hr DAILY@09 IV 11/19/24 09:00 Laboratory Results Laboratory Tests 11/16/24 15:24 Urinalysis Test 11/16/24 18:44 Urine Color Light-yellow (Yellow) Urine Clarity Turbid (Clear) H Urine pH 6.0 (5.0-9.0) Urine Specific [place] 1.021 (1.001-1.035) Urine Protein Negative (Negative) Urine Ketones Trace (Negative) Urine Blood Negative /uL (Negative) Urine Nitrite Negative (Negative) Urine Bilirubin Negative (Negative) Urine Urobilinogen Normal mg/dL (Negative) Urine Leukocyte Esterase 1+ /uL (Negative) Urine RBC 2 /hpf (0 - 4) Urine Microscopic WBC 3 /HPF (0-5) Urine Squamous Epithelial Cells Mod /hpf (<5) Urine Bacteria Few /hpf (None Seen) H Urine Glucose Normal mg/dL (Normal) Labs and/or images reviewed: Labs reviewed by me, Image(s) reviewed by me Assessment/Plan Assessment/Plan Breakthrough seizures: Continue home medications Trileptal Topamax phenobarbital and Keppra neurology consult for Dr. lowry appreciated, no further neurological workup Hypothyroidism Developmental delay History of seizures Mild UTI treated with Rocephin Medication Noncompliance Examined the patient with the help of secretary book keeper Mother at the bedside Plan discussed with: Patient My Orders Orders - ELAINA SNYDER MD Procedure Category Date Status Time * Neurology Consult CONS 11/17/24 Transmitted 13:07 Date of Service: Nov 18, 2024 Billing Provider: ELAINA SNYDER MD Common Visit Codes: [id number] INP/OBS CARE(HIGH) ELAINA SNYDER MD Nov 18, 2024 11:02
--- NOTE | 2024-11-18 11:06 | DVHDS2 ---
Discharge Summary Date of Admission Nov 16, 2024 at 20:02 Date of Discharge: Nov 18, 2024 Admitting Diagnosis Breakthrough seizures Wounds: none Labs/Diagnostic Data: Laboratory Results Test 11/16/24 18:44 11/16/24 15:24 Urine Color Light-yellow (Yellow) Urine Clarity Turbid (Clear) Urine pH 6.0 (5.0-9.0) Urine Specific [place] 1.021 (1.001-1.035) Urine Protein Negative (Negative) Urine Ketones Trace (Negative) Urine Blood Negative /uL (Negative) Urine Nitrite Negative (Negative) Urine Bilirubin Negative (Negative) Urine Urobilinogen Normal mg/dL (Negative) Urine Leukocyte Esterase 1+ /uL (Negative) Urine RBC 2 /hpf (0 - 4) Urine Microscopic WBC 3 /HPF (0-5) Urine Squamous Epithelial Cells Mod /hpf (<5) Urine Bacteria Few /hpf (None Seen) Urine Glucose Normal mg/dL (Normal) White Blood Count 9.5 10^3/uL (4.4-10.8) Red Blood Count 4.26 10^6/uL (4.0-5.20) Hemoglobin 13.2 g/dL (12.2-16.2) Hematocrit 40.9 % (36.0-46.0) Mean Corpuscular Volume 95.9 fL (80.0-100.0) Mean Corpuscular Hemoglobin 30.9 pg (28.0-32.0) Mean Corpuscular Hemoglobin Concent 32.2 g/dL (32.0-36.0) Red Cell Distribution Width 13.3 % (11.8-14.3) Platelet Count 221 10^3/uL (140-450) Mean Platelet Volume 8.2 fL (6.9-10.8) Neutrophils (%) (Auto) 86.2 % (37.0-80.0) Lymphocytes (%) (Auto) 9.2 % (10.0-50.0) Monocytes (%) (Auto) 3.8 % (0.0-12.0) Eosinophils (%) (Auto) 0.4 % (0.0-7.0) Basophils (%) (Auto) 0.4 % (0.0-2.0) Neutrophils # (Auto) 8.2 10 ^3/uL (1.6-8.6) Lymphocytes # (Auto) 0.9 10 ^3/uL (0.4-5.4) Monocytes # (Auto) 0.4 10 ^3/uL (0-1.3) Eosinophils # (Auto) 0 10 ^3/uL (0-0.8) Basophils # (Auto) 0 10 ^3/uL (0-0.2) Nucleated Red Blood Cells 0.1 % Sodium Level 142 mmol/L (136-145) Potassium Level 4.0 mmol/L (3.5-5.1) Chloride Level 109 mmol/L (98-107) Carbon Dioxide Level 23 mmol/L (20-31) Anion Gap 10 (5-15) Blood Urea Nitrogen 9 mg/dL (9-23) Creatinine 0.62 mg/dL (0.550-1.02) Glomerular Filtration Rate Calc 122 mL/min (>90) BUN/Creatinine Ratio 14.5 (10.0-20.0) Serum Glucose 115 mg/dL (74-106) Calcium Level 9.0 mg/dL (8.7-10.4) Other Laboratory Tests 11/16/24 15:24 Brief Hx & Hospital Course: 29-year-old female with a history of developmental delay seizures taking Trileptal Topamax phenobarbital and Keppra at home brought in by mother for breakthrough seizures CT head was negative continued on all home medications mild UTI treated with Rocephin Neurology consult by Dr. Lowry feel no further neurological workup. Mother at the bedside discussed about diagnosis management and discharge plan with the mother through the help of occupational medicine officer. Discharged home on Cipro for UTI she will continue all her seizure medications follow up with Dr. Lowry who is also her neurologist Consults/Reason for consult Neurology Dr. Lowry Operations or Procedures CT head Condition at Discharge: Fair Final Diagnosis/Problems List Breakthrough seizures: Continue home medications Trileptal Topamax phenobarbital and Keppra neurology consult for Dr. lowry appreciated, no further neurological workup Hypothyroidism Developmental delay History of seizures Mild UTI treated with Rocephin Medication Noncompliance Discharge Disposition: Home Discharge Instruct/Medications Diet: Regular Activity: Light activity Follow Up/Referral: Resume all previous home medications Follow up with the primary Dr Follow up with your neurologist Dr. Lowry Medications: Cipro Transmitted to pharmacy 35 (Time Taken for discharge summary 35 minutes) Discharge Statement: "Patient was advised to return to the ER or call 911 if any headaches, dizziness, shortness of breath, chest pain, abdominal pain, bleeding, fevers, or worsening of medical condition. Patient was counseled about treatment plan, medications, possible side effects, patientverbalized understanding. All questions were answered to the best of my ability. This discharge took greater then 30 minutes in planning, reviewing documentation, counseling the patient, and discussing with other team members." ASSESSMENT ASSESSMENT Hospital Course Improved Assessment Breakthrough seizures: Continue home medications Trileptal Topamax phenobarbital and Keppra neurology consult for Dr. lowry appreciated, no further neurological workup Hypothyroidism Developmental delay History of seizures Mild UTI treated with Rocephin Medication Noncompliance Date of Service: Nov 18, 2024 Billing Provider: ELAINA SNYDER MD Common Visit Codes: 95163-ASY/OBS DISCH DAY >30min ELAINA SNYDER MD Nov 18, 2024 11:06
[2024-11-18] MEDS ORDERED: LORazepam 2MG/ML-1ML VIAL IM PRN (12:45)
--- NOTE | 2024-11-18 19:27 | DVHPN2 ---
Progress Note - Dictate Date Seen: Nov 18, 2024 Medical Necessity Reason Pt with a Central, PICC or Fol: No Subjective is a 29 years old female with a history of mental rotation, autism, seizure disorder, she was brought to the [facility] on 11/16/24 with a chief complaint of seizure activity. I saw on 03/31/2023 for seizure I have seen and examined the patient, I have talked to her nighttime and daytime nurses, her mother and her sister, she was doing fine now, awake, happy, oriented to person place, she follows verbal commands She was seizure earlier this morning, which caused the fall and I saw he was in the leg I saw her in my office, and that she is on the following medications Topamax 100 mg twice a day Phenobarbital 64.8 mg twice a day, Oxcarbazepine 600 mg twice a day Folate 1mg Qd Urinalysis, 11/16/2024: WBC: 3, urine leukocyte esterase: 1+ CBC, 11/16/2024: Unremarkable BMP, 11/16/2024: Unremarkable CT head, 03/31/2023: No acute intracranial abnormality. vital signs Vital Sign Date Time Temp Pulse Resp B/P (MAP) Pulse Ox O2 Delivery O2 Flow Rate FiO2 11/18/24 17:00 97.6 111 16 110/66 (81) 95 97.6 11/18/24 08:00 Room Air* 0 21 Total Intake and Output 11/17/24 11/17/24 11/18/24 15:00 23:00 07:00 Intake Total 200 ml 500 ml Balance 200 ml 500 ml medications Current Medications Medications Dose Ordered Sig/Chrystal Route Start Time Stop Time Status Last Admin Dose Admin Phenobarbital 64.8 mg Q12HR PO 11/16/24 22:00 11/17/24 22:36 64.8 MG Topiramate 100 mg Q12HR PO 11/16/24 22:00 11/18/24 12:04 100 MG Levothyroxine Sodium 50 mcg QAM@0600 PO 11/17/24 06:00 11/18/24 06:29 50 MCG Oxcarbazepine 600 mg Q12HR PO 11/16/24 22:00 11/18/24 11:53 600 MG Ondansetron HCl 4 mg Q4HP PRN IV 4/9/25 20:15 Acetaminophen 650 mg Q6HP PRN PO 11/16/24 20:15 Nitrofurantoin Macrocrystals 100 mg BID PO 11/16/24 23:00 11/18/24 12:04 100 MG Ceftriaxone Sodium 50 ml @ 100 mls/hr DAILY@09 IV 11/19/24 09:00 Lorazepam 1 mg Q5MINP PRN IM 11/18/24 12:45 objective General: the patient is well developed and nourished. No acute distress. MENTAL STATUS: Awake and alert. Oriented to person and place, she is happy, SPEECH, LANGUAGE, HIGHER CORTICAL FUNCTION: She talks a little bit, no aphasia or dysarthria CRANIAL NERVES: Pupils are equal, round and reactive. EOMs full and conjugate Facial sensation intact in all three divisions bilaterally. Mandibular strength intact. Facial muscles symmetrical and strength intact. SENSATION: Sensation to touch and pinprick is normal. MOTOR: Normal tone in the upper and lower extremity. Normal muscle bulk. No fasciculations. No abnormal movements or posturing. Muscle strength of the major groups in the extremities is 5/5. REFLEXES: Deep tendon reflexes are symmetrical. No pathological reflexes. CEREBELLAR/COORDINATION: Normal finger-nose tests GAIT/STATION: deferred. laboratory and microbiology Laboratory Tests 11/16/24 15:24 Test 11/16/24 15:24 Range/Units Serum Glucose 115 H 74-106 mg/dL Problem List Status epileptics Grand mal seizure Mental revision Urinary tract infection Assessment/Plan Monitoring Supportive treatment Telemetry Aerosol isolation IV antibiotics Topamax 100 mg twice a day Phenobarbital 64.8 mg twice a day, Oxcarbazepine 600 mg twice a day Folate 1mg Qd Ativan for seizure breakthrough Cipro More recommendation per clinical course This medical document was created using an electronic medical record system with [employer] dictation system. Although this document has been carefully reviewed, there may still be some phonetic and typographical errors. These areas are purely typographical due to imperfections of the software programs, and do not reflect any compromise in the patient's medical care. Prognosis poor Plan discussed with: Other JAYSHREE GASPAR MD Nov 18, 2024 19:27
[2024-11-19] VITALS (8 sets, daily range): BP systolic 102–119; BP diastolic 53–71; PULSE 78–114; RESP 16–19; TEMP 97.5–98; O2SAT 93–97
[2024-11-19] MEDS: cefTRIAXone 1GM/50ML D5W 50 ML IV SCH (09:00)
--- NOTE | 2024-11-19 10:21 | DVHPN2 ---
Reviewed: Care Plan, H&P, Labs, Medications, Previous Orders, Radiology Changes from previous H/P or p: No Changes Objective Vitals Vital Signs Date Time Temp Pulse Resp B/P (MAP) Pulse Ox O2 Delivery O2 Flow Rate FiO2 11/19/24 08:56 97.8 90 18 104/53 (70) 96 97.8 11/18/24 20:00 Room Air* 0 21 Intake/Output Intake and Output 11/19/24 07:00 Intake Total 1050 ml Balance 1050 ml Intake Oral 1050 ml # Voids 7 # Bowel Movements 2 Medications Current Medications Medications Dose Ordered Sig/Chrystal Route Start Time Stop Time Status Last Admin Dose Admin Phenobarbital 64.8 mg Q12HR PO 11/16/24 22:00 11/19/24 09:20 64.8 MG Topiramate 100 mg Q12HR PO 11/16/24 22:00 11/19/24 09:22 100 MG Levothyroxine Sodium 50 mcg QAM@0600 PO 11/17/24 06:00 11/19/24 05:48 50 MCG Oxcarbazepine 600 mg Q12HR PO 11/16/24 22:00 11/19/24 09:21 600 MG Ondansetron HCl 4 mg Q4HP PRN IV 11/16/24 20:15 Acetaminophen 650 mg Q6HP PRN PO 11/16/24 20:15 Nitrofurantoin Macrocrystals 100 mg BID PO 11/16/24 23:00 11/19/24 09:22 100 MG Ceftriaxone Sodium 50 ml @ 100 mls/hr DAILY@09 IV 11/19/24 09:00 Lorazepam 1 mg Q5MINP PRN IM 11/18/24 12:45 Laboratory Results Laboratory Tests 11/16/24 15:24 Urinalysis Test 11/16/24 18:44 Urine Color Light-yellow (Yellow) Urine Clarity Turbid (Clear) H Urine pH 6.0 (5.0-9.0) Urine Specific [place] 1.021 (1.001-1.035) Urine Protein Negative (Negative) Urine Ketones Trace (Negative) Urine Blood Negative /uL (Negative) Urine Nitrite Negative (Negative) Urine Bilirubin Negative (Negative) Urine Urobilinogen Normal mg/dL (Negative) Urine Leukocyte Esterase 1+ /uL (Negative) Urine RBC 2 /hpf (0 - 4) Urine Microscopic WBC 3 /HPF (0-5) Urine Squamous Epithelial Cells Mod /hpf (<5) Urine Bacteria Few /hpf (None Seen) H Urine Glucose Normal mg/dL (Normal) Labs and/or images reviewed: Labs reviewed by me, Image(s) reviewed by me Assessment/Plan Assessment/Plan Breakthrough seizures: Continue home medications Trileptal Topamax phenobarbital and Keppra neurology consult for Dr. lowry appreciated, no further neurological workup Status Epilepticus: Topamax 100 mg p.o. b.i.d., phenobarbital 64.8 mg b.i.d., oxcarbazepine 600 mg b.i.d., folate 1 mg daily, Ativan for breakthrough seizures Hypothyroidism Developmental delay History of seizures Mild UTI treated with Rocephin Medication Noncompliance Examined the patient with the help of insulation technician Mother at the bedside History of fall at home: CT head without contrast, CT head and neck without contrast and C-spine CT without contrast ordered by Dr. Lowry result pending Plan discussed with: Patient My Orders Orders - ELAINA SNYDER MD Procedure Category Date Status Time Discharge DISCHARGE 11/18/24 Transmitted 11:03 Lorazepam 2mg/Ml Inj PHA 11/18/24 In Process (Ativan Inj) 12:45 Date of Service: Nov 19, 2024 Billing Provider: ELAINA SNYDER MD Common Visit Codes: [id number] INP/OBS CARE(HIGH) ELAINA SNYDER MD Nov 19, 2024 10:21
--- NOTE | 2024-11-19 10:30 | DVH ---
CT HEAD WITHOUT CONTRAST INDICATION: S/P FALL : 29 old Female S/P FALL EXAM DATE: 11/19/2024 09:48 AM COMPARISON: CT HEAD WITHOUT CONTRAST on DOS: 11/16/24, HEAD WITHOUT CONTRAST on DOS: 08/20/22, HEAD WITH OUT CONTRAST on DOS: 08/02/21 RADIATION DOSE: CTDIvol: 53.99 mGy, DLP: 863.9 mGy*cm PROCEDURE: CT scans of the head were obtained from the vertex to the skull base. Sagittal and coronal reconstructions were provided. All CT scans at this medical facility are performed using dose modulation techniques as appropriate t o a performed exam including the following: Automated exposure control was utilized; adjustment of th e MA and/or KV according to patient size; and use of iterative reconstruction technique. FINDINGS: There is sulcal and ventricular prominence. The brainshows normal morphology and hidalgo-whi te matter differentiation, without intracranial hemorrhage, extra-axial fluid collection, mass effect or acute large vessel infarct. The ventricles are normal in size. The basal cisterns are patent. The skull and visible facial bones are intact. The paranasal sinuses, mastoid air cells and middle ear c avities are well-aerated. The soft tissues of the scalp are unremarkable. IMPRESSION: No acute intracranial abnormality.
--- NOTE | 2024-11-19 10:37 | DVH ---
CT CERVICAL WITHOUT CONTRAST INDICATION: S/P FALL : 29 old Female S/P FALL EXAM DATE: 11/19/2024 09:51 AM COMPARISON: None RADIATION DOSE: CTDIvol: 17.53 mGy, DLP: 444.73 mGy*cm PROCEDURE: Utilizing the CT scanner, contiguous axial images were obtained through the cervical spine . Coronal and sagittal reformatted images were then generated. All CT scans at this medical facility are performed using dose modulation techniques as appropriate t o a performed exam including the following: Automated exposure control was utilized; adjustment of th e MA and/or KV according to patient size; and use of iterative reconstruction technique. FINDINGS: Alignment at the craniocervical junction is maintained. The cortical margins are intact. Th e vertebral body heights and cervical alignment are normal. The facet joints show normal alignment wi thout fracture. The intervertebral disc spaces are preserved. The paraspinal soft tissues appear norm al. On axial images: the disc, thecal sac, neural foramina and facet joints are normal. IMPRESSION: No cervical spine fracture or subluxation.
[2024-11-20] VITALS (7 sets, daily range): BP systolic 93–116; BP diastolic 56–69; PULSE 83–107; RESP 16–19; TEMP 97.8–98.5; O2SAT 93–100
--- NOTE | 2024-11-20 11:15 | DVHPN2 ---
Reviewed: Care Plan, H&P, Labs, Medications, Previous Orders, Radiology Changes from previous H/P or p: No Changes Objective Vitals Vital Signs Date Time Temp Pulse Resp B/P (MAP) Pulse Ox O2 Delivery O2 Flow Rate FiO2 11/20/24 08:00 98 16 93 Room Air* 0 21 11/20/24 05:00 98.1 106/69 (81) 98.1 Intake/Output Intake and Output 11/20/24 07:00 Intake Total 1380 ml Balance 1380 ml Intake Oral 1380 ml # Voids 5 # Bowel Movements 1 Medications Current Medications Medications Dose Ordered Sig/Chrystal Route Start Time Stop Time Status Last Admin Dose Admin Phenobarbital 64.8 mg Q12HR PO 11/16/24 22:00 11/20/24 09:41 64.8 MG Topiramate 100 mg Q12HR PO 11/16/24 22:00 11/20/24 09:42 100 MG Levothyroxine Sodium 50 mcg QAM@0600 PO 11/17/24 06:00 11/20/24 05:12 50 MCG Oxcarbazepine 600 mg Q12HR PO 11/16/24 22:00 11/20/24 09:42 600 MG Ondansetron HCl 4 mg Q4HP PRN IV 11/16/24 20:15 Acetaminophen 650 mg Q6HP PRN PO 11/16/24 20:15 Nitrofurantoin Macrocrystals 100 mg BID PO 11/16/24 23:00 11/20/24 09:41 100 MG Ceftriaxone Sodium 50 ml @ 100 mls/hr DAILY@09 IV 11/19/24 09:00 Lorazepam 1 mg Q5MINP PRN IM 11/18/24 12:45 Laboratory Results Laboratory Tests 11/16/24 15:24 Urinalysis Test 11/16/24 18:44 Urine Color Light-yellow (Yellow) Urine Clarity Turbid (Clear) H Urine pH 6.0 (5.0-9.0) Urine Specific [place] 1.021 (1.001-1.035) Urine Protein Negative (Negative) Urine Ketones Trace (Negative) Urine Blood Negative /uL (Negative) Urine Nitrite Negative (Negative) Urine Bilirubin Negative (Negative) Urine Urobilinogen Normal mg/dL (Negative) Urine Leukocyte Esterase 1+ /uL (Negative) Urine RBC 2 /hpf (0 - 4) Urine Microscopic WBC 3 /HPF (0-5) Urine Squamous Epithelial Cells Mod /hpf (<5) Urine Bacteria Few /hpf (None Seen) H Urine Glucose Normal mg/dL (Normal) Labs and/or images reviewed: Labs reviewed by me, Image(s) reviewed by me Assessment/Plan Assessment/Plan Breakthrough seizures: Continue home medications Trileptal Topamax phenobarbital and Keppra neurology consult for Dr. lowry appreciated, no further neurological workup Status Epilepticus: Topamax 100 mg p.o. b.i.d., phenobarbital 64.8 mg b.i.d., oxcarbazepine 600 mg b.i.d., folate 1 mg daily, Ativan for breakthrough seizures Hypothyroidism Developmental delay History of seizures Mild UTI treated with Rocephin Medication Noncompliance Examined the patient with the help of shipping receiving manager Mother at the bedside History of fall at home: CT head without contrast, CT head negative, C-spine CT negative Plan discussed with: Patient Date of Service: Nov 20, 2024 Billing Provider: ELAINA SNYDER MD Common Visit Codes: [id number] INP/OBS CARE(HIGH) ELAINA SNYDER MD Nov 20, 2024 11:15
[2024-11-21 01:00] VITALS: BP 106/57; PULSE 91; RESP 17; TEMP 97.7; O2SAT 96
[2024-11-21 05:00] VITALS: BP 102/55; PULSE 83; RESP 17; TEMP 97.7; O2SAT 96
[2024-11-21 08:00] VITALS: PULSE 86; RESP 17; O2SAT 98
[2024-11-21 08:38] VITALS: BP 109/60; PULSE 86; RESP 17; TEMP 97.6; O2SAT 96
--- NOTE | 2024-11-21 12:25 | DVHPN2 ---
Reviewed: Care Plan, H&P, Labs, Medications, Previous Orders, Radiology Changes from previous H/P or p: No Changes Objective Vitals Vital Signs Date Time Temp Pulse Resp B/P (MAP) Pulse Ox O2 Delivery O2 Flow Rate FiO2 11/21/24 08:38 97.6 86 17 109/60 (76) 96 97.6 11/21/24 08:00 Room Air* 0 21 Intake/Output Intake and Output 11/21/24 07:00 Intake Total 980 ml Balance 980 ml Intake Oral 980 ml # Voids 4 # Bowel Movements 2 Medications Current Medications Medications Dose Ordered Sig/Chrystal Route Start Time Stop Time Status Last Admin Dose Admin Phenobarbital 64.8 mg Q12HR PO 11/16/24 22:00 11/21/24 10:28 64.8 MG Topiramate 100 mg Q12HR PO 11/16/24 22:00 11/21/24 10:29 100 MG Levothyroxine Sodium 50 mcg QAM@0600 PO 11/17/24 06:00 11/21/24 05:50 50 MCG Oxcarbazepine 600 mg Q12HR PO 11/16/24 22:00 11/21/24 10:29 600 MG Ondansetron HCl 4 mg Q4HP PRN IV 11/16/24 20:15 Acetaminophen 650 mg Q6HP PRN PO 11/16/24 20:15 Nitrofurantoin Macrocrystals 100 mg BID PO 11/16/24 23:00 11/21/24 10:28 100 MG Ceftriaxone Sodium 50 ml @ 100 mls/hr DAILY@09 IV 11/19/24 09:00 Lorazepam 1 mg Q5MINP PRN IM 11/18/24 12:45 Laboratory Results Laboratory Tests 11/16/24 15:24 Urinalysis Test 11/16/24 18:44 Urine Color Light-yellow (Yellow) Urine Clarity Turbid (Clear) H Urine pH 6.0 (5.0-9.0) Urine Specific [place] 1.021 (1.001-1.035) Urine Protein Negative (Negative) Urine Ketones Trace (Negative) Urine Blood Negative /uL (Negative) Urine Nitrite Negative (Negative) Urine Bilirubin Negative (Negative) Urine Urobilinogen Normal mg/dL (Negative) Urine Leukocyte Esterase 1+ /uL (Negative) Urine RBC 2 /hpf (0 - 4) Urine Microscopic WBC 3 /HPF (0-5) Urine Squamous Epithelial Cells Mod /hpf (<5) Urine Bacteria Few /hpf (None Seen) H Urine Glucose Normal mg/dL (Normal) Labs and/or images reviewed: Labs reviewed by me, Image(s) reviewed by me Assessment/Plan Assessment/Plan Breakthrough seizures: Continue home medications Trileptal Topamax phenobarbital and Keppra neurology consult for Dr. lowry appreciated, no further neurological workup Status Epilepticus: Topamax 100 mg p.o. b.i.d., phenobarbital 64.8 mg b.i.d., oxcarbazepine 600 mg b.i.d., folate 1 mg daily, Ativan for breakthrough seizures Hypothyroidism Developmental delay History of seizures Mild UTI treated with Rocephin Medication Noncompliance Examined the patient with the help of safety representative Mother at the bedside History of fall at home: CT head without contrast neg, CT head negative, C- spine CT negative Plan discussed with: Patient Date of Service: Nov 21, 2024 Billing Provider: ELAINA SNYDER MD Common Visit Codes: [id number] INP/OBS CARE(HIGH) ELAINA SNYDER MD Nov 21, 2024 12:25
[2024-11-21 12:30] VITALS: BP 110/63; PULSE 91; RESP 17; TEMP 97.9; O2SAT 97
[2024-11-21 12:31] VITALS: BP 109/60; PULSE 86; RESP 17; TEMP 36.4; O2SAT 96
== END 2024-11-21 18:02 | disposition home or self-care (01) | DRG 101 ==
LOC: EDBD 14:08 → ER 14:08 → EDUNIT# 14:08 → OVERFLOW 20:02 → WEST WING 11-17 05:03
PROVIDERS: ADMIT Family Medicine; ATTEND Family Medicine
DX: G40.401 Other generalized epilepsy and epileptic syndromes, not intractable, with status epilepticus (principal); N39.0 Urinary tract infection, site not specified; F84.0 Autistic disorder; E03.9 Hypothyroidism, unspecified; R62.50 Unspecified lack of expected normal physiological development in childhood; Z79.899 Other long term (current) drug therapy; Z91.148 Patient's other noncompliance with medication regimen for other reason
CPT/HCPCS: 36415; 70450; 72125; 80048; 81001; 85025; 96365; 96372; 96375; G0378; J2250